=== PATIENT | female | born 1985 | race Two or more races ===

== ENCOUNTER 2020-06-05 09:24 | Outpatient (REF) | payer OTHER, SELFPAY ==
[2020-06-05 10:46] LABS: MANUAL DIFF FLAG NO
[2020-06-05 11:02] LABS: Anion Gap 14 (12-20); Blood Urea Nitrogen 14 mg/dL (9-16); Calcium 8.9 mg/dL (8.4-10.2); Carbon Dioxide 29 mmol/L (22-29); Chloride 105 mmol/L (96-108); Estimated Glomerular Filt Rate > 60; Glucose Random 71 mg/dL (60-115); Sodium 144 mmol/L (135-145)
[2020-06-05 11:04] LABS: Basophils Percent Auto 0.4 % (0-2); Eosinophils Absolute Auto 0.5 X10*3/uL (0.0-0.4); Eosinophils Percent Auto 5.8 % (0-4); Hematocrit 41.1 % (37-47); Hemoglobin 12.7 g/dl (12.0-16.0); Imm Gran Abs Auto 0.02 X10*3/uL (0.00-0.03); Imm Gran Pct Auto 0.2 % (0.0-0.4); Lymphocytes Percent Auto 22.3 % (20-40); Mean Corpuscular HGB Conc 30.9 g/dl (31.0-35.0); Mean Corpuscular Hemoglobin 26.1 pg (27.0-33.0); Mean Corpuscular Volume 84.4 fL (80-98); Mean Platelet Volume 11.8 fL (9.4-12.3); Monocytes Absolute Auto 0.4 X10*3/uL (0.1-1.2); Monocytes Percent Auto 4.6 % (2-11); Neutrophils Absolute Auto 6.1 X10*3/uL (2.0-8.3); Neutrophils Percent Auto 66.7 % (45-73); Platelet Count 285 X10*3/uL (160-400); Red Blood Count 4.87 X10*6/uL (4.20-5.50); Red Cell Distribution Width 14.6 % (11.0-16.0); White Blood Count 9.2 X10*3/uL (4.8-10.8)
== END 2020-06-05 09:25 | disposition home or self-care (01) ==
LOC: HO.LAB 09:24
PROVIDERS: PCP Internal Medicine; Visit Provider Internal Medicine
DX: Z00.00 Encounter for general adult medical examination without abnormal findings (principal); R51.9 Headache, unspecified
CPT/HCPCS: 36415; 80048; 85025

== ENCOUNTER 2020-10-01 10:35 | Outpatient (REF) | payer OTHER, SELFPAY ==
[2020-10-01 11:17] LABS: MANUAL DIFF FLAG NO
[2020-10-01 11:49] LABS: Basophils Percent Auto 0.3 % (0-2); Eosinophils Absolute Auto 0.3 X10*3/uL (0.0-0.4); Eosinophils Percent Auto 4.1 % (0-4); Hematocrit 40.6 % (37-47); Hemoglobin 12.8 g/dl (12.0-16.0); Imm Gran Abs Auto 0.02 X10*3/uL (0.00-0.03); Imm Gran Pct Auto 0.3 % (0.0-0.4); Lymphocytes Absolute Auto 1.9 X10*3/uL (1.2-4.9); Lymphocytes Percent Auto 23.5 % (20-40); Mean Corpuscular HGB Conc 31.5 g/dl (31.0-35.0); Mean Corpuscular Hemoglobin 26.1 pg (27.0-33.0); Mean Corpuscular Volume 82.9 fL (80-98); Mean Platelet Volume 11.7 fL (9.4-12.3); Monocytes Absolute Auto 0.4 X10*3/uL (0.1-1.2); Monocytes Percent Auto 5.2 % (2-11); Neutrophils Absolute Auto 5.3 X10*3/uL (2.0-8.3); Neutrophils Percent Auto 66.6 % (45-73); Platelet Count 219 X10*3/uL (160-400); Red Cell Distribution Width 14.3 % (11.0-16.0); White Blood Count 7.9 X10*3/uL (4.8-10.8)
[2020-10-01 11:55] LABS: Alanine Aminotransferase 17 U/L (0-31); Albumin Level 4.1 g/dL (3.5-5.0); Alkaline Phosphatase 85 U/L (39-117); Anion Gap 12 (12-20); Aspartate Amino Transferase 20 U/L (5-31); Bilirubin Total 0.5 mg/dL (0.0-1.0); Blood Urea Nitrogen 10 mg/dL (9-16); Calcium 9.2 mg/dL (8.4-10.2); Carbon Dioxide 27 mmol/L (22-29); Chloride 108 mmol/L (96-108); Cholesterol 139 mg/dL; Estimated Glomerular Filt Rate > 60; Glucose Fasting 93 mg/dL (60-99); HDL Cholesterol 32 mg/dL; LDL Cholesterol Calculated 92 mg/dl; Potassium 4.1 mmol/L (3.3-5.1); Sodium 143 mmol/L (135-145); Total Protein 7.3 g/dL (6.5-8.0); Triglycerides 76 mg/dL
[2020-10-06 12:52] LABS: Vitamin D 25-OH, D2 <4 ng/mL; Vitamin D 25-OH, D3 22 ng/mL; Vitamin D 25-OH, Total 22 ng/mL (30-100)
== END 2020-10-01 10:36 | disposition home or self-care (01) ==
LOC: HO.LAB 10:35
PROVIDERS: PCP Internal Medicine; Visit Provider Internal Medicine
DX: E66.9 Obesity, unspecified (principal); E55.9 Vitamin D deficiency, unspecified; E78.5 Hyperlipidemia, unspecified; D64.9 Anemia, unspecified
CPT/HCPCS: 36415; 80053; 80061; 82306; 85025

== ENCOUNTER 2020-10-14 15:46 | Emergency (ER) | payer OTHER, SELFPAY ==
--- NOTE | ~2020-10-14 | XR_ITS ---
EXAMINATION: XR ANKLE, RIGHT CLINICAL INFORMATION: Ankle pain COMPARISON: None TECHNIQUE: AP, lateral, and mortise views of the right ankle. FINDINGS: The bones and soft tissues are normal aside from some minimal soft tissue swelling. No fracture. Alignment is anatomic. Joint spaces are maintained. No joint effusion. XR/XR ankle RT min 3V IMPRESSION: No evidence of an acute injury.
[2020-10-14 16:45] VITALS: BP 132/87; PULSE 68; RESP 16; TEMP 36.9; O2SAT 100; BMI 32.9
[2020-10-14] MEDS: Acetaminophen 325 MG TABLET 650 MG PO (16:51)
--- NOTE | 2020-10-14 18:34 | ED_ITS ---
HPI - Extremity Problem General Chief complaint: Extremity Problem <Fabio yWatt MD - Last Filed: 10/14/20 18:42> Stated complaint: fall - work related <Fabio Wyatt MD - Last Filed: 10/14/20 18:42> Time Seen by Provider: 10/14/20 18:32 <Fabio Wyatt MD - Last Filed: 10/14/20 18:42> Source: patient <Fabio Wyatt MD - Last Filed: 10/14/20 18:42> Mode of arrival: ambulatory <Fabio Wyatt MD - Last Filed: 10/14/20 18:42> Limitations: no limitations <Fabio Wyatt MD - Last Filed: 10/14/20 18:42> History of Present Illness HPI Narrative: patient was at work when she twisted her ankle and hurt her foot. Patient having pain with walking. <Fabio Wyatt MD - Last Filed: 10/14/20 18:42> MD Complaint: extremity pain <Fabio Wyatt MD - Last Filed: 10/14/20 18:42> Onset (ago): hour(s) <Fabio Wyatt MD - Last Filed: 10/14/20 18:42> Pain Consistency: constant <Fabio Wyatt MD - Last Filed: 10/14/20 18:42> Exacerbating factors: walking <Fabio Wyatt MD - Last Filed: 10/14/20 18:42> Associated symptoms: denies other symptoms <Fabio Wyatt MD - Last Filed: 10/14/20 18:42> Related Data Home medications: Previous Rx's Medication Instructions Recorded cholecalciferol (vitamin D3) 25 25 mcg PO DAILY 90 Days #90 cap 10/19/20 mcg (1,000 unit) capsule <Fabio Wyatt MD - Last Filed: 10/14/20 18:42> Allergies/Adverse reactions: Allergies Allergy/AdvReac Type Severity Reaction Status Date / Time aspirin Allergy Intermediate rash and Verified 10/19/20 08:03 swelling seafood Allergy Intermediate swelling Verified 10/19/20 08:03 <Fabio Wyatt MD - Last Filed: 10/14/20 18:42> Review of Systems Constitutional: Constitutional: Reports no additional constitutional complaints <Fabio Wyatt MD - Last Filed: 10/14/20 18:42> Eyes: Eyes: Reports no additional eye complaints <Fabio Wyatt MD - Last Filed: 10/14/20 18:42> ENT: Denies dizziness <Fabio Wyatt MD - Last Filed: 10/14/20 18:42> Cardiovascular: Cardiovascular: Reports no additional cardiovascular complaints <Fabio Wyatt MD - Last Filed: 10/14/20 18:42> Respiratory: Respiratory: Reports as per HPI <Fabio Wyatt MD - Last Filed: 10/14/20 18:42> Gastrointestinal: Gastrointestinal: Reports no additional gastrointestinal complaints <Fabio Wyatt MD - Last Filed: 10/14/20 18:42> Genitourinary: Genitourinary: Reports no additional female genitourinary complaints <Fabio Wyatt MD - Last Filed: 10/14/20 18:42> Musculoskeletal: Musculoskeletal: Reports no additional musculoskeletal complaints <Fabio Wyatt MD - Last Filed: 10/14/20 18:42> Integumentary/Breasts: Skin/Breast: Denies rash <Fabio Wyatt MD - Last Filed: 10/14/20 18:42> Neurologic: Reports system reviewed and no additional complaints, except as documented, Denies dizziness and Denies Sensory deficit (Neuro) <Fabio Wyatt MD - Last Filed: 10/14/20 18:42> Psychiatric: Psychiatric: Denies anxiety <Fabio Wyatt MD - Last Filed: 10/14/20 18:42> [facility] Past Medical History Medical History: Medical History (Updated 10/19/20 @ 08:13 by Sharmin Gray MD) Headache Hirsutism Hypovitaminosis D Obese Skin lesion <Fabio Wyatt MD - Last Filed: 10/14/20 18:42> Surgical History: Surgical History History of D&C <Fabio Wyatt MD - Last Filed: 10/14/20 18:42> Family History Family History: Family History Father Stroke Cancer Diabetes Hypertension Mother No problems noted. Maternal Grandmother Cancer Maternal Grandfather Cancer <Fabio Wyatt MD - Last Filed: 10/14/20 18:42> Social History Social History: Social History Housing: Apartment Alcohol intake: never Patient Tobacco Use Status: Never used Tobacco e-Cigarette/Vaping Use: Never Used Second Hand Smoke Exposure: No service: No Current occupational status: employed Current occupational exposures/hazards: No <Fabio Wyatt MD - Last Filed: 10/14/20 18:42> Physical Exam Vital Signs: Vital Signs: Last Vital Signs Temp 98.4 F 10/14/20 16:45 Pulse 68 10/14/20 16:45 Resp 16 10/14/20 16:45 BP 132/87 10/14/20 16:45 Pulse Ox 100 10/14/20 16:45 Body Mass Index 32.9 <Fabio Wyatt MD - Last Filed: 10/14/20 18:42> Vital Signs: Last Vital Signs Temp 98.4 F 10/14/20 16:45 Pulse 68 10/14/20 16:45 Resp 16 10/14/20 16:45 BP 132/87 10/14/20 16:45 Pulse Ox 100 10/14/20 16:45 Body Mass Index 32.9 <MICHA Ireland - Last Filed: 10/24/20 13:46> Const: General: healthy appearing <Fabio Wyatt MD - Last Filed: 10/14/20 18:42> Nutritional Appearance: average body habitus <Fabio Wyatt MD - Last Filed: 10/14/20 18:42> Orientation/consciousness: oriented to person and patient oriented x3 <Fabio Wyatt MD - Last Filed: 10/14/20 18:42> Limitations: no limitations <Fabio Wyatt MD - Last Filed: 10/14/20 18:42> HENMT: Head: Yes normal to inspection <Fabio Wyatt MD - Last Filed: 10/14/20 18:42> Ears: external ears normal <Fabio Wyatt MD - Last Filed: 10/14/20 18:42> General nose exam: Normal external nose present <Fabio Wyatt MD - Last Filed: 10/14/20 18:42> Mouth: Normal oral and palatal mucosa present and oropharynx normal <Fabio Wyatt MD - Last Filed: 10/14/20 18:42> Throat: Yes posterior oropharynx normal <Fabio Wyatt MD - Last Filed: 10/14/20 18:42> Eyes: General: appearance normal, both eyes and all related structures <Fabio Wyatt MD - Last Filed: 10/14/20 18:42> Neck: Other: supple <Fabio Wyatt MD - Last Filed: 10/14/20 18:42> Neck: Yes normal visual inspection <Fabio Wyatt MD - Last Filed: 10/14/20 18:42> Chest: Chest palpation & inspection: normal inspection of the chest <Fabio Wyatt MD - Last Filed: 10/14/20 18:42> Resp: Auscultation: clear to auscultation bilaterally <Fabio Wyatt MD - Last Filed: 10/14/20 18:42> Cardio: Jugular venous distension: no JVD <Fabio Wyatt MD - Last Filed: 10/14/20 18:42> Rate: regular rate <Fabio Wyatt MD - Last Filed: 10/14/20 18:42> Rhythm: regular rhythm <Fabio Wyatt MD - Last Filed: 10/14/20 18:42> Heart sounds: S1 normal heart sound present and S2 normal heart sound present <Fabio Wyatt MD - Last Filed: 10/14/20 18:42> GI: Inspection: Yes normal to inspection <Fabio Wyatt MD - Last Filed: 10/14/20 18:42> Palpation (GI): Soft to palpation, nontender and No hepatosplenomegaly present <Fabio Wyatt MD - Last Filed: 10/14/20 18:42> Auscultation: normal bowel sounds <Fabio Wyatt MD - Last Filed: 10/14/20 18:42> : General: Yes no CVA tenderness <Fabio Wyatt MD - Last Filed: 10/14/20 18:42> Back/Spine/Pelvis: Back: no CVA tenderness <Fabio Wyatt MD - Last Filed: 10/14/20 18:42> Skin: General skin exam: no rashes or lesions noted <Fabio Wyatt MD - Last Filed: 10/14/20 18:42> Neuro: General: oriented to person and patient oriented x3 <Fabio Wyatt MD - Last Filed: 10/14/20 18:42> Cranial nerves: Yes CN's II-XII intact bilaterally <Fabio Wyatt MD - Last Filed: 10/14/20 18:42> Motor exam (neuro): 5/5 motor strength present throughout <Fabio Wyatt MD - Last Filed: 10/14/20 18:42> Sensory Exam: No Sensory deficit (Neuro) <Fabio Wyatt MD - Last Filed: 10/14/20 18:42> Extrem: Other: slight tenderness to lateral maleolous and base of the 5th <Fabio Wyatt MD - Last Filed: 10/14/20 18:42> Psych: Appearance: grossly normal <Fabio Wyatt MD - Last Filed: 10/14/20 18:42> Course Reevaluation(s) Reevaluation #1: patient with sprained ankle, will place in aircast and crutches <Fabio Wyatt MD - Last Filed: 10/14/20 18:42> Time: 18:40 <Fabio Wyatt MD - Last Filed: 10/14/20 18:42> MDM - Extremity (Nontraumatic) Imaging Data right ankle: Radiologist's impression: FINDINGS: The bones and soft tissues are normal aside from some minimal soft tissue swelling. No fracture. Alignment is anatomic. Joint spaces are maintained. No joint effusion.? XR/XR ankle RT min 3V IMPRESSION: No evidence of an acute injury. <Fabio Wyatt MD - Last Filed: 10/14/20 18:42> Discharge Plan Discharge Clinical Impression: Ankle sprain <Fabio Wyatt MD - Last Filed: 10/14/20 18:42> Patient Disposition: Home, Self-Care <Fabio Wyatt MD - Last Filed: 10/14/20 18:42> Instructions: Ankle Sprain (ED) <Fabio Wyatt MD - Last Filed: 10/14/20 18:42> Additional Instructions: ice 20 minutes off and on <Fabio Wyatt MD - Last Filed: 10/14/20 18:42> Prescriptions: No Action cholecalciferol (vitamin D3) 25 mcg (1,000 unit) capsule 25 mcg PO DAILY 90 Days Qty: 90 RF: 1 <Fabio Wyatt MD - Last Filed: 10/14/20 18:42> Referrals: Sharmin Quintero MD [Primary Care Provider] - 1 week <Fabio Wyatt MD - Last Filed: 10/14/20 18:42> Stand Alone Forms: Work/School Release <Fabio Wyatt MD - Last Filed: 10/14/20 18:42> Interventions: ED Discharge Assessment Last Done: 10/14/20 18:45 <Fabio Wyatt MD - Last Filed: 10/14/20 18:42> Discharge Date/Time: 10/14/20 19:04 <Fabio Wyatt MD - Last Filed: 10/14/20 18:42>
== END 2020-10-14 19:04 | disposition home or self-care (01) ==
PROVIDERS: Emergency Provider Emergency Medicine; PCP Internal Medicine
DX: M25.571 Pain in right ankle and joints of right foot (principal)
CPT/HCPCS: 73610; 99283; 99284

== ENCOUNTER 2022-09-15 10:55 | Outpatient (AMB) | payer OTHER, SELFPAY ==
[2022-09-15 10:57] VITALS: BP 114/78; BMI 33.5
--- NOTE | 2022-09-15 10:57 | A.OFFPC_ITS ---
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 Accompanied by: Self / Same As Patient Allergies aspirin Allergy (Intermediate, Verified 09/15/22 11:07) rash and swelling seafood Allergy (Intermediate, Verified 09/15/22 11:07) swelling Medication List - Last Reconciled 09/15/22 by Sharmin Gray MD acetaminophen 500 mg PO Q6H PRN lisinopril 10 mg PO DAILY 30 days Tobacco use date assessed: 09/15/22 Dental Screening Dental Screen Date: 09/15/22 Did you have a dental visit in the last 12 months?: Yes Did you have a dental problem in the last 6 months where you did not have access to dental care?: No Was dental information given to patient?: Patient has dentist HPI HPI Comments History of Present Illness Details This is a 37-year-old female with use disorder that comes today for follow-up on uncontrolled hypertension in which today has a normal blood pressure. Blood pressures associated with headache. Denies any chest pain or shortness of breath. For her hirsutism I will refer her to Endocrinology again. [facility] Medical History (Updated 09/15/22 @ 11:12 by Sharmin Gray MD) Headache Hirsutism Hypovitaminosis D Obese Skin lesion Surgical History History of D&C Family History Father Stroke Cancer Diabetes Hypertension Mother No problems noted. Maternal Grandmother Cancer Maternal Grandfather Cancer Social History Housing: Apartment Alcohol intake: never Patient Tobacco Use Status: Never used Tobacco e-Cigarette/Vaping Use: Never Used Second Hand Smoke Exposure: No service: No Current occupational status: employed Current occupational exposures/hazards: No Cognitive needs: No Hearing needs: No Vision needs: Yes (glasses) Questionnaire PHQ-9 Over the last 2 weeks, how often have you been bothered by any of the following problems? 1. Little interest or pleasure in doing things: not at all 2. Feeling down, depressed, or hopeless: not at all 3. Trouble falling or staying asleep, or sleeping too much: not at all 4. Feeling tired or having little energy: not at all 5. Poor appetite or overeating: not at all 6. Feeling bad about yourself - or that you are a failure or have let yourself or your family down: not at all 7. Trouble concentrating on things, such as reading the newspaper or watching television: not at all 8. Moving or speaking so slowly that other people could have noticed. Or the opposite - being so fidgety or restless that you have been moving around a lot more than usual: not at all 9. Thoughts that you would be better off or of hurting yourself in some way: not at all Total score: 0 Depression Screening Interpretation: Negative 00881 - PHQ-9 Billing: Yes Source: Developed by Drs. Cuate Aguiar, Seda Brink, Marc Garces and colleagues, with an educational chetan from [employer]. Thrive Questionnaire Date Thrive assessed: 09/15/22 I am a: Patient What is your living situation today?: I have a steady place to live Within the past 12 months, did the food you bought not last and you didn't have the money to get more?: Never true Within the past 12 months, did you worry whether your food would run out before you got money to buy more?: Never true Do you have trouble paying for medicines?: No Do you have trouble getting transportation to medical appointments?: No Do you have trouble paying your heating and electricity bill?: No Do you have trouble taking care of your child, family member or friend?: No Do you have trouble with day-to-day activities such as bathing, preparing meals, shopping, managing finances, etc.?: No Are you currently unemployed and looking for a job?: No Are you interested in more education?: No Please select the resources that you would like help with: None Currently or been in a relationship where the following occur: no concerns reported AUDIT C Alcohol Use Questionnaire (AUDIT-C) 1. How often do you have a drink containing alcohol?: Never Total Score: 0 Score Reviewed/Action Taken: No MARINO-7 AMB Questionnaire MARINO-7 Date MARINO - 7 assessed: 09/15/22 Feeling nervous, anxious, or on edge: 0 = Not at all Not being able to stop or control worryin = Not at all Worrying too much about different things: 0 = Not at all Trouble relaxin = Not at all Being so restless that it is hard to sit still: 0 = Not at all Becoming easily annoyed or irritable: 0 = Not at all Feeling afraid as if something awful might happen: 0 = Not at all Total MARINO-7 score (0-4 normal; 5-9 mild; 10-14 moderate; 15-21 severe): 0 Source: Developed by Drs. Cuate Aguiar, Seda Brink, Marc Garces and colleagues, with an educational chetan from [employer]. MARINO-7 Assessment Billing MARINO-7 Assessment Tool: MARINO-7 Assessment 90828 Review of Systems Const All systems reviewed & are unremarkable except as noted in HPI and below Eyes Reports no additional complaints, Denies change in vision and Denies other visual disturbances Card Denies chest pain at rest, Denies chest pain with activity, Denies edema, Denies irregular heart rhythm, Denies claudication, Denies dyspnea, Denies dyspnea on exertion, Denies orthopnea, Denies paroxysmal nocturnal dyspnea and Denies slow heart rate Resp Denies cough, Denies dyspnea and Denies dyspnea on exertion GI Denies abdominal pain, Denies change in bowel habits, Denies excessive flatus, Denies nausea and Denies vomiting Denies urinary incontinence, Denies urinary hesitancy and Denies urinary urgency Musc Denies abnormal gait, Denies atrophy, Denies deformity and Denies limited range of motion Skin/Breast Denies bleeding lesions, Denies changing lesions and Denies rash Neuro Denies abnormal gait and Denies lack of coordination Physical exam (Primary Care) Vital Signs: Last Vital Signs BP 114/78 09/15/22 10:57 BMI result Body Mass Index 33.5 Tobacco/Smoking Status: Tobacco use Status Tobacco use date assessed 09/15/22 09/15/22 11:05 Patient Tobacco Use Status Never used Tobacco 09/15/22 11:05 e-Cigarette/Vaping Use Never Used 09/15/22 11:05 PHQ-9: PHQ-9 Score PHQ-9: Total score 0 09/15/22 11:05 Depression Screening Interpretation: Negative Thrive Assessment: Date of Thrive Assessment Date Thrive assessed 09/15/22 09/15/22 11:05 Currently or been in a relationship where the following occur: no concerns reported Eyes General: appearance normal, both eyes and all related structures Eyelids: Yes eyelids normal Conjunctivae: conjunctivae normal Neck Neck: Yes normal visual inspection and Yes supple Resp Effort & Inspection: normal respiratory effort Auscultation: clear to auscultation bilaterally Cardio Jugular venous distension: no JVD Rate: regular rate Rhythm: regular rhythm Heart sounds: S1 normal heart sound present and S2 normal heart sound present Extrem General: Yes full ROM Assessment and Plan Assessment & Plan (1) Uncontrolled hypertension: Code(s): I10 - Essential (primary) hypertension Plan: Start lisinopril. Blood pressure goal is equal or less than 130/80. (2) Hirsutism: Code(s): L68.0 - Hirsutism Plan: Referred to endocrinology. Orders: Orders 17 Hydroxyprogesterone Today L68.0 - Hirsutism Comprehensive [place]. Panel Fast Today I10 - Essential (primary) hypertension Lipid Panel Today I10 - Essential (primary) hypertension Vitamin D 25-OH Total Today E55.9 - Vitamin D deficiency, unspecified Complete Blood Count Auto Diff Today L68.0 - Hirsutism US renal doppler Today I10 - Essential (primary) hypertension Catecholamines, Frac., Plasma Today I10 - Essential (primary) hypertension Metanephrines, Plasma Today I10 - Essential (primary) hypertension Aldosterone Today I10 - Essential (primary) hypertension Renin Today I10 - Essential (primary) hypertension Referrals Endocrinology Referral L68.0 - Hirsutism Medications: Changed From lisinopril 10 mg PO DAILY 30 days 30 tabs 0RF I10 - Essential (primary) hypertension To lisinopril 10 mg PO DAILY 90 days 90 tabs 1RF I10 - Essential (primary) hypertension Coding Level of Care Code Est Pt Level 3 (91003) Diagnoses Uncontrolled hypertension I10 Hirsutism L68.0 Additional Codes MARINO-7 Assessment Billing - MARINO-7 Assessment Tool: MARINO-7 Assessment 40123 ([id number]) Time Spent (min) 18
== END 2022-09-15 11:16 | disposition home or self-care (01) ==
PROVIDERS: PCP Internal Medicine; Visit Provider Internal Medicine
DX: I10 Essential (primary) hypertension (principal); L68.0 Hirsutism
CPT/HCPCS: 99213

== ENCOUNTER 2022-09-23 09:17 | Outpatient (REF) | payer OTHER, SELFPAY ==
[2022-09-23 09:37] LABS: MANUAL DIFF FLAG NO
[2022-09-23 10:40] LABS: Basophils Percent Auto 0.2 % (0-2); Eosinophils Absolute Auto 0.4 X10*3/uL (0.0-0.4); Eosinophils Percent Auto 4.1 % (0-4); Hematocrit 38.9 % (37.0-47.0); Imm Gran Abs Auto 0.03 X10*3/uL (0.00-0.03); Imm Gran Pct Auto 0.3 % (0.0-0.4); Lymphocytes Absolute Auto 1.9 X10*3/uL (1.2-4.9); Lymphocytes Percent Auto 18.9 % (20-40); Mean Corpuscular HGB Conc 30.8 g/dl (31.0-35.0); Mean Corpuscular Hemoglobin 25.6 pg (27.0-33.0); Mean Corpuscular Volume 83.1 fL (80.0-98.0); Monocytes Absolute Auto 0.5 X10*3/uL (0.1-1.2); Monocytes Percent Auto 4.5 % (2-11); Neutrophils Absolute Auto 7.2 x10*3/uL (2.0-8.3); Platelet Count 238 X10*3/uL (160-400); Red Blood Count 4.68 X10*6/uL (4.20-5.50); Red Cell Distribution Width 14.6 % (11.0-16.0)
[2022-09-23 11:19] LABS: Alanine Aminotransferase 22 U/L (0-31); Albumin Level 4.1 g/dL (3.5-5.0); Alkaline Phosphatase 88 U/L (39-117); Anion Gap 9 (12-20); Aspartate Amino Transferase 23 U/L (5-31); Bilirubin Total 0.5 mg/dL (0.0-1.0); Blood Urea Nitrogen 12 mg/dL (9-16); Calcium 9.1 mg/dL (8.4-10.2); Carbon Dioxide 28 mmol/L (22-29); Chloride 107 mmol/L (96-108); Cholesterol 178 mg/dL; Estimated Glomerular Filt Rate > 60; Glucose Fasting 77 mg/dL (60-99); HDL Cholesterol 38 mg/dL; LDL Cholesterol Calculated 124 mg/dl; Potassium 3.4 mmol/L (3.3-5.1); Sodium 141 mmol/L (135-145); Total Protein 7.4 g/dL (6.5-8.0); Triglycerides 84 mg/dL
[2022-09-23 11:25] LABS: Vitamin D 25-OH Total 29.9 ng/mL (>30)
[2022-10-03 07:59] LABS: Metanephrine, Free 57
[2022-10-03 08:00] LABS: Normetanephrines, Free 148
[2022-10-03 08:01] LABS: Total Metanephrine, Free 205
[2022-10-09 21:28] LABS: Catecholamine Frac, Total 207 pg/mL
== END 2022-09-23 09:18 | disposition home or self-care (01) ==
LOC: HO.LAB 09:17
PROVIDERS: PCP Internal Medicine; Visit Provider Internal Medicine
DX: I10 Essential (primary) hypertension (principal); E55.9 Vitamin D deficiency, unspecified; L68.0 Hirsutism
CPT/HCPCS: 36415; 80053; 80061; 82088; 82306; 82384; 83498; 83835; 84244; 85025

== ENCOUNTER 2022-09-26 10:31 | Outpatient (AMB) | payer OTHER, SELFPAY ==
[2022-09-26 10:52] VITALS: BP 122/90; PULSE 80; O2SAT 98; BMI 33.5
--- NOTE | 2022-09-26 10:52 | MHC.PC.OV ---
Vital Signs 09/26/22 10:52 Height 5 ft 3 in Weight 189 lb BMI 33.5 BP 122/90 H Blood Pressure Location Lt brachial Position Sitting Pulse 80 Pulse Source Pulse Oximeter Temp Source Skin Pulse Oximetry (%) 98 Oxygen Delivery Method Room Air Intake Visit Reasons: Physical Exam Intake Note: Patient is here today for a physical. 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 Allergies aspirin Allergy (Intermediate, Verified 09/26/22 10:53) rash and swelling seafood Allergy (Intermediate, Verified 09/26/22 10:53) swelling Tobacco use date assessed: 09/26/22 Dental Screening Dental Screen Date: 09/26/22 Did you have a dental visit in the last 12 months?: Yes Did you have a dental problem in the last 6 months where you did not have access to dental care?: No Was dental information given to patient?: Patient has dentist HPI HPI Comments History of Present Illness Details 29-year-old female past medical history significant for uncontrolled hypertension, cervalgia, hirtutism. Patient of last seen this month. Patient presents today for physical exam. Patient requesting refill on Vit D, last Vit D level 29.9, 1,000 units sent to patients pharmacy. Patient denies acute concerns. Eye exam: 2 months ago Pap smear: January 2022, normal. Patient follows at [facility] [place]. [facility] Medical History Headache Hirsutism Hypovitaminosis D Obese Skin lesion Surgical History History of D&C Family History Father Stroke Cancer Diabetes Hypertension Mother No problems noted. Maternal Grandmother Cancer Maternal Grandfather Cancer Social History Housing: Apartment Alcohol intake: never Patient Tobacco Use Status: Never used Tobacco e-Cigarette/Vaping Use: Never Used Second Hand Smoke Exposure: No service: No Current occupational status: employed Current occupational exposures/hazards: No Cognitive needs: No Hearing needs: No Vision needs: Yes (glasses) Questionnaire PHQ-9 Over the last 2 weeks, how often have you been bothered by any of the following problems? 1. Little interest or pleasure in doing things: not at all 2. Feeling down, depressed, or hopeless: not at all 3. Trouble falling or staying asleep, or sleeping too much: not at all 4. Feeling tired or having little energy: not at all 5. Poor appetite or overeating: not at all 6. Feeling bad about yourself - or that you are a failure or have let yourself or your family down: not at all 7. Trouble concentrating on things, such as reading the newspaper or watching television: not at all 8. Moving or speaking so slowly that other people could have noticed. Or the opposite - being so fidgety or restless that you have been moving around a lot more than usual: not at all 9. Thoughts that you would be better off or of hurting yourself in some way: not at all Total score: 0 Depression Screening Interpretation: Negative 48036 - PHQ-9 Billing: Yes Source: Developed by Drs. Cuate Aguiar, Seda Brink, Marc Garces and colleagues, with an educational chetan from [employer]. Thrive Questionnaire Date Thrive assessed: 09/15/22 AUDIT C Alcohol Use Questionnaire (AUDIT-C) 1. How often do you have a drink containing alcohol?: Never Total Score: 0 Score Reviewed/Action Taken: No MARINO-7 AMB Questionnaire MARINO-7 Date MARINO - 7 assessed: 09/15/22 Feeling nervous, anxious, or on edge: 0 = Not at all Not being able to stop or control worryin = Not at all Worrying too much about different things: 0 = Not at all Trouble relaxin = Not at all Being so restless that it is hard to sit still: 0 = Not at all Becoming easily annoyed or irritable: 0 = Not at all Feeling afraid as if something awful might happen: 0 = Not at all Total MARINO-7 score (0-4 normal; 5-9 mild; 10-14 moderate; 15-21 severe): 0 Source: Developed by Drs. Cuate Aguiar, Marc Marroquin and colleagues, with an educational chetan from [employer]. MARINO-7 Assessment Billing MARINO-7 Assessment Tool: MARINO-7 Assessment 50305 Review of Systems Const Denies chills, Denies fatigue, Denies fever(s) and Denies poor appetite Eyes Denies no additional complaints ENT Reports Normal hearing present Card Denies chest pain, Denies syncope, Denies rapid heart rate and Denies dyspnea Resp Denies cough and Denies dyspnea GI Denies change in stool character, Denies constipation, Denies diarrhea, Denies nausea and Denies vomiting Denies urinary frequency, Denies dysuria and Denies urinary urgency Neuro Reports Normal hearing present, Denies confusion and Denies syncope Psych Denies confusion Endo Denies fatigue Physical exam (Primary Care) Vital Signs: Last Vital Signs Pulse 80 09/26/22 10:52 BP 122/90 H 09/26/22 10:52 Pulse Ox 98 09/26/22 10:52 Oxygen Delivery Method Room Air 09/26/22 10:52 BMI result Body Mass Index 33.5 Tobacco/Smoking Status: Tobacco use Status Tobacco use date assessed 09/26/22 09/26/22 10:53 Patient Tobacco Use Status Never used Tobacco 09/26/22 10:53 e-Cigarette/Vaping Use Never Used 09/26/22 10:53 PHQ-9: PHQ-9 Score PHQ-9: Total score 0 09/26/22 11:11 Depression Screening Interpretation: Negative Thrive Assessment: Date of Thrive Assessment Date Thrive assessed 09/15/22 09/26/22 10:53 Const General: No confusion Orientation/consciousness: No confusion HENMT Head: Yes normocephalic and Yes atraumatic Ears: external ears normal and TM's normal bilaterally General nose exam: Normal external nose present and Normal nasal mucous membranes and turbinates present Face and sinus: Yes normal facial exam and Yes sinuses nontender Mouth: moist mucous membranes Throat: Yes tonsils normal Eyes Conjunctivae: conjunctivae normal Sclerae: sclerae normal Pupils: Equal, round and reactive pupils present and Pupils normal by confrontation EOM: EOMs intact bilaterally Direct Ophthalmoscopy: normal light reflex Neck Neck: Yes no lymphadenopathy and Yes supple Thyroid: Thyroid normal Chest Chest palpation & inspection: normal inspection of the chest Resp Effort & Inspection: normal respiratory effort Auscultation: clear to auscultation bilaterally, no crackles, no rhonchi and no wheezes Cardio Rate: regular rate Rhythm: regular rhythm Peripheral pulses: radial pulses present and dorsalis pedis present GI Inspection: Yes normal to inspection Palpation (GI): Soft to palpation, nontender and No hepatosplenomegaly present Auscultation: normoactive bowel sounds Skin General skin exam: no rashes or lesions noted Neuro General: No confusion Cranial nerves: Yes Equal, round and reactive pupils present and Yes Normal hearing present Cognition (Neuro): normal cognition Gait exam (Neuro): Normal gait present Motor exam (neuro): 5/5 motor strength present throughout Deep tendon reflexes (DTR's): Right brachioradialis reflex intensity grade: 2+, Left brachioradialis reflex intensity grade: 2+, Right patellar reflex intensity grade: 2+ and Left patellar reflex intensity grade: 2+ Extrem General: No edema Assessment and Plan Assessment & Plan (1) Physical exam, annual: Code(s): Z00.00 - Encounter for general adult medical examination without abnormal findings Plan: Follow up in 1 year for physical exam (2) Uncontrolled hypertension: Code(s): I10 - Essential (primary) hypertension Plan: Continue on lisinopril 10 mg daily. B/p 120/90 in office today, patient states did take her b/p medication yet today. Patient advised to take her medication. Follow low salt diet and excercise. Patient to have Renal ultrasound completed in the beginning of October. (3) Hirsutism: Code(s): L68.0 - Hirsutism Plan: Previously referred to endocrinolgy for this. Plan Follow up in [address] Monsivais Medications: New cholecalciferol (vitamin D3) 25 mcg PO DAILY 30 caps 3RF Coding Level of Care Code Est Pt Prev Care 18-39y(29437) Diagnoses Physical exam, annual Z00.00 Uncontrolled hypertension I10 Hirsutism L68.0 Additional Codes MARINO-7 Assessment Billing - MARINO-7 Assessment Tool: MARINO-7 Assessment [id number] ([id number])
== END 2022-09-26 11:23 | disposition home or self-care (01) ==
PROVIDERS: PCP Internal Medicine; Visit Provider Nurse Practitioner Family
DX: Z00.00 Encounter for general adult medical examination without abnormal findings (principal); I10 Essential (primary) hypertension; L68.0 Hirsutism
CPT/HCPCS: 99395

== ENCOUNTER 2022-10-13 09:06 | Outpatient (REF) | payer OTHER, SELFPAY ==
--- NOTE | ~2022-10-13 | US_ITS ---
EXAMINATION: US RETROPERITONEAL LIMITED (RENAL ONLY) CLINICAL INFORMATION: Hypertension. COMPARISON: None available. TECHNIQUE: Doppler color and grayscale imaging of the kidneys. Doppler color and grayscale evaluation of the renal arteries including waveform spectral analysis FINDINGS: RIGHT KIDNEY: 10 x 5 x 4 cm (SAG x AP x TRV). The kidney is normal in size, contour, and echogenicity. Renal cortical thickness is normal. No calculi. Small 4 mm cyst in the upper pole. No imaging follow-up recommended. No hydronephrosis. LEFT KIDNEY: 10.6 x 5 x 4 cm (SAG x AP x TRV). The kidney is normal in size, contour, and echogenicity. Renal cortical thickness is normal. No calculi or focal parenchymal lesions. No hydronephrosis. Aortic peak systolic velocity is elevated measuring 145 cm/s and cannot be used to calculate renal artery to aorta ratio. The right renal artery is patent. Renal artery peak systolic velocity is normal measuring 97 cm/s proximally, 130 cm/s the midportion and 155 cm/s distally. Resistive indices of the segmental renal arteries in the right kidney are normal measuring 0.6-0.7. Right renal vein is patent. The left renal artery is patent. Left renal artery peak systolic velocity is normal measuring 97, 97 and 78 cm/s proximally, in the midportion and distally. Resistive indices of the segmental renal arteries in the left kidney are normal measuring 0.5-0.6. Left renal vein is patent. US/US renal BI IMPRESSION: Normal renal ultrasound. Normal renal Doppler exam..
--- NOTE | ~2022-10-13 | US_ITS ---
EXAMINATION: US RETROPERITONEAL LIMITED (RENAL ONLY) CLINICAL INFORMATION: Hypertension. COMPARISON: None available. TECHNIQUE: Doppler color and grayscale imaging of the kidneys. Doppler color and grayscale evaluation of the renal arteries including waveform spectral analysis FINDINGS: RIGHT KIDNEY: 10 x 5 x 4 cm (SAG x AP x TRV). The kidney is normal in size, contour, and echogenicity. Renal cortical thickness is normal. No calculi. Small 4 mm cyst in the upper pole. No imaging follow-up recommended. No hydronephrosis. LEFT KIDNEY: 10.6 x 5 x 4 cm (SAG x AP x TRV). The kidney is normal in size, contour, and echogenicity. Renal cortical thickness is normal. No calculi or focal parenchymal lesions. No hydronephrosis. Aortic peak systolic velocity is elevated measuring 145 cm/s and cannot be used to calculate renal artery to aorta ratio. The right renal artery is patent. Renal artery peak systolic velocity is normal measuring 97 cm/s proximally, 130 cm/s the midportion and 155 cm/s distally. Resistive indices of the segmental renal arteries in the right kidney are normal measuring 0.6-0.7. Right renal vein is patent. The left renal artery is patent. Left renal artery peak systolic velocity is normal measuring 97, 97 and 78 cm/s proximally, in the midportion and distally. Resistive indices of the segmental renal arteries in the left kidney are normal measuring 0.5-0.6. Left renal vein is patent. US/US renal doppler IMPRESSION: Normal renal ultrasound. Normal renal Doppler exam..
== END 2022-10-13 09:07 | disposition home or self-care (01) ==
LOC: HO.US 09:06
PROVIDERS: PCP Internal Medicine; Visit Provider Internal Medicine
DX: I10 Essential (primary) hypertension (principal)
CPT/HCPCS: 76775; 93975

== ENCOUNTER 2022-11-30 09:07 | Outpatient (REF) | payer OTHER, SELFPAY ==
--- NOTE | ~2022-11-30 | CT_ITS ---
EXAMINATION: CT ABDOMEN WITHOUT AND WITH CONTRAST CLINICAL INFORMATION: Elevated blood pressure. Rule out pheochromocytoma. COMPARISON: None available. TECHNIQUE: Contiguous axial thin section helical images of the abdomen were performed before and after the administration of 85 mL of Omnipaque 350 intravenous contrast. The data set was reformatted in the coronal and sagittal planes and reviewed on an independent workstation. This CT examination was performed using dose optimization techniques as appropriate, variously including the following: *Automated exposure control *Adjustment of mA and/or kV according to patient size (this includes techniques or standardized protocols for targeted exams where dose is matched to indication/reason for exam; i.e. extremities or head) *Use of iterative reconstruction technique DLP: 415 mGy-cm FINDINGS: LUNG BASES: No suspicious lung nodules. LIVER, GALLBLADDER, AND BILIARY TREE: The liver appears normal. No focal liver mass. The gallbladder is unremarkable. No intrahepatic or extra hepatic biliary ductal dilatation. PANCREAS: No discrete pancreatic mass. No pancreatic ductal dilatation or surrounding inflammatory change. SPLEEN: Normal. ADRENAL GLANDS AND KIDNEYS: No adrenal mass. Tiny cortical hypodensities in the kidneys are too small to characterize but are most likely cysts. No follow-up imaging is recommended. Punctate nonobstructing calculus in the upper pole of the right kidney. 3 mm nonobstructing calculus in the mid left kidney. No hydroureteronephrosis. Nephrograms are symmetric. No perinephric stranding. Single right renal artery and 2 left renal arteries appear patent with no evidence of renal atherosclerosis. BOWEL LOOPS: The visualized segments of small and large bowel appear normal. LYMPH NODES: No lymphadenopathy. VASCULAR: Normal caliber abdominal aorta. BONES: No suspicious osseous lesions. CT/CT abdomen wo/w IV con IMPRESSION: No evidence of pheochromocytoma. Fleischner guidelines were followed.
[2022-11-30] MEDS: iohexoL 350 MG/ML 100 ML INFUS..BTL IV (10:33)
== END 2022-11-30 09:08 | disposition home or self-care (01) ==
LOC: HO.CT 09:07
PROVIDERS: PCP Internal Medicine; Visit Provider Internal Medicine
DX: R03.0 Elevated blood-pressure reading, without diagnosis of hypertension (principal)
CPT/HCPCS: 74170; Q9967

== ENCOUNTER 2023-03-29 09:59 | Outpatient (AMB) | payer OTHER, SELFPAY ==
--- NOTE | 2023-03-29 10:00 | MHC.PC.OV ---
Vital Signs 03/29/23 10:04 Height 5 ft 3 in Weight 191 lb BMI 33.8 BP 112/76 Blood Pressure Location Lt brachial Position Sitting Intake Visit Reasons: HTN Follow up Intake Note: Patient here for a follow up HTN Analytics Senior Manager Required: No Accompanied by: Self / Same As Patient Allergies aspirin Allergy (Intermediate, Verified 03/29/23 10:09) rash and swelling seafood Allergy (Intermediate, Verified 03/29/23 10:09) swelling Medication List - Last Reconciled 03/29/23 by Sharmin Gray MD cholecalciferol (vitamin D3) 25 mcg PO DAILY lisinopril 10 mg PO DAILY 90 days Tobacco use date assessed: 03/29/23 Dental Screening Dental Screen Date: 03/29/23 Did you have a dental visit in the last 12 months?: Yes Did you have a dental problem in the last 6 months where you did not have access to dental care?: No Was dental information given to patient?: Patient has dentist HPI HPI Comments History of Present Illness Details This is a 38-year-old female with essential hypertension and low vitamin-D that complains of eyelid lesion in lower eyelid that she noticed about 3 months ago. It is nontender and papular. She also has allergic rhinitis and I will start her on cetirizine. Blood pressure stable. She is taking vitamin-D supplements for her low vitamin-D. No chest pain or shortness of breath. [facility] Medical History (Updated 03/29/23 @ 10:20 by Sharmin Gray MD) Uncontrolled hypertension Elevated BP without diagnosis of hypertension Skin lesion Hypovitaminosis D Headache Hirsutism Obese Surgical History History of D&C Family History Father Stroke Cancer Diabetes Hypertension Mother No problems noted. Maternal Grandmother Cancer Maternal Grandfather Cancer Social History Housing: Apartment Alcohol intake: never Patient Tobacco Use Status: Never used Tobacco e-Cigarette/Vaping Use: Never Used Second Hand Smoke Exposure: No service: No Current occupational status: employed Current occupational exposures/hazards: No Cognitive needs: No Hearing needs: No Vision needs: Yes (glasses) Questionnaire PHQ-9 Over the last 2 weeks, how often have you been bothered by any of the following problems? 1. Little interest or pleasure in doing things: not at all 2. Feeling down, depressed, or hopeless: not at all 3. Trouble falling or staying asleep, or sleeping too much: not at all 4. Feeling tired or having little energy: not at all 5. Poor appetite or overeating: not at all 6. Feeling bad about yourself - or that you are a failure or have let yourself or your family down: not at all 7. Trouble concentrating on things, such as reading the newspaper or watching television: not at all 8. Moving or speaking so slowly that other people could have noticed. Or the opposite - being so fidgety or restless that you have been moving around a lot more than usual: not at all 9. Thoughts that you would be better off or of hurting yourself in some way: not at all Total score: 0 Depression Screening Interpretation: Negative Depression Screening Done: Yes 61687 - PHQ-9 Billing: Yes Source: Developed by Drs. Cuate Aguiar, Seda Brink, Marc Garces and colleagues, with an educational chetan from [employer]. Thrive Questionnaire Date Thrive assessed: 03/29/23 I am a: Patient What is your living situation today?: I have a steady place to live Within the past 12 months, did the food you bought not last and you didn't have the money to get more?: Never true Within the past 12 months, did you worry whether your food would run out before you got money to buy more?: Never true Do you have trouble paying for medicines?: No Do you have trouble getting transportation to medical appointments?: No Do you have trouble paying your heating and electricity bill?: No Do you have trouble taking care of your child, family member or friend?: No Do you have trouble with day-to-day activities such as bathing, preparing meals, shopping, managing finances, etc.?: No Are you currently unemployed and looking for a job?: No Are you interested in more education?: No Please select the resources that you would like help with: None Currently or been in a relationship where the following occur: no concerns reported THRIVE Score: 0 AUDIT C Alcohol Use Questionnaire (AUDIT-C) 1. How often do you have a drink containing alcohol?: Never Total Score: 0 MARINO-7 AMB Questionnaire MARINO-7 Date MARINO - 7 assessed: 03/29/23 Feeling nervous, anxious, or on edge: 0 = Not at all Not being able to stop or control worryin = Not at all Worrying too much about different things: 0 = Not at all Trouble relaxin = Not at all Being so restless that it is hard to sit still: 0 = Not at all Becoming easily annoyed or irritable: 0 = Not at all Feeling afraid as if something awful might happen: 0 = Not at all Total MARINO-7 score (0-4 normal; 5-9 mild; 10-14 moderate; 15-21 severe): 0 Source: Developed by Drs. Cuate Aguiar, Seda Brink, Marc Garces and colleagues, with an educational chetan from [employer]. MARINO-7 Assessment Billing MARINO-7 Assessment Tool: MARINO-7 Assessment 76147 Review of Systems Const All systems reviewed & are unremarkable except as noted in HPI and below Eyes Reports no additional complaints, Denies change in vision and Denies other visual disturbances Card Denies chest pain at rest, Denies chest pain with activity, Denies edema, Denies irregular heart rhythm, Denies claudication, Denies dyspnea, Denies dyspnea on exertion, Denies orthopnea, Denies paroxysmal nocturnal dyspnea and Denies slow heart rate Resp Denies cough, Denies dyspnea and Denies dyspnea on exertion GI Denies abdominal pain, Denies change in bowel habits, Denies excessive flatus, Denies nausea and Denies vomiting Denies urinary incontinence, Denies urinary hesitancy and Denies urinary urgency Musc Denies abnormal gait, Denies atrophy, Denies deformity and Denies limited range of motion Skin/Breast Denies bleeding lesions, Denies changing lesions and Denies rash Neuro Denies abnormal gait, Denies behavioral changes and Denies lack of coordination Psych Denies behavioral changes Physical exam (Primary Care) Vital Signs: Last Vital Signs BP 112/76 03/29/23 10:04 BMI result Body Mass Index 33.8 Tobacco/Smoking Status: Tobacco use Status Tobacco use date assessed 03/29/23 03/29/23 10:07 Patient Tobacco Use Status Never used Tobacco 03/29/23 10:03 e-Cigarette/Vaping Use Never Used 03/29/23 10:03 PHQ-9: PHQ-9 Score PHQ-9: Total score 0 03/29/23 10:03 Depression Screening Interpretation: Negative Thrive Assessment: Date of Thrive Assessment Date Thrive assessed 03/29/23 03/29/23 10:03 Currently or been in a relationship where the following occur: no concerns reported Eyes General: appearance normal, both eyes and all related structures Eyelids: Yes eyelids normal Conjunctivae: conjunctivae normal Neck Neck: Yes normal visual inspection and Yes supple Resp Effort & Inspection: normal respiratory effort Auscultation: clear to auscultation bilaterally Cardio Jugular venous distension: no JVD Rate: regular rate Rhythm: regular rhythm Heart sounds: S1 normal heart sound present and S2 normal heart sound present Extrem General: Yes full ROM Office Procedures Flu Questionnaire Does the patient have a severe egg allergy?: No Immunizations flu vacc [id number] 6mos up(PF) 60 mcg(15 mcgx4)/0.5 mL IM syringe Performing Provider: Sharmin Gray MD [facility] Documented (not given) by: COOPER Huerta on 03/29/23 10:08 Reason Not Given: Patient Refused Assessment and Plan Assessment & Plan (1) Essential hypertension: Code(s): I10 - Essential (primary) hypertension Plan: Continue lisinopril. Blood pressure goal is equal or less than 130/80. (2) Hypovitaminosis D: Code(s): E55.9 - Vitamin D deficiency, unspecified Plan: Continue vitamin-D supplements. (3) Eyelid lesion: Code(s): H02.9 - Unspecified disorder of eyelid Plan: Referred to Ophthalmology (4) Allergic rhinitis: Code(s): J30.9 - Allergic rhinitis, unspecified Plan: Start cetirizine as needed. Orders: Orders Influenza [id number] Immunization Today Z23 - Encounter for immunization Lipid Panel Today E66.9 - Obesity, unspecified Comprehensive [place]. Panel Fast Today E66.9 - Obesity, unspecified Vitamin D 25-OH Total Today E55.9 - Vitamin D deficiency, unspecified Referrals Ophthalmology Referral H02.9 - Unspecified disorder of eyelid Medications: New cetirizine (All Day Allergy (cetirizine)) 10 mg PO DAILY 90 days PRN 90 tabs 0RF allergy symptoms Refilled cholecalciferol (vitamin D3) 25 mcg PO DAILY 30 caps 3RF Coding Level of Care Code Est Pt Level 4 (93840) Diagnoses Essential hypertension I10 Hypovitaminosis D E55.9 Eyelid lesion H02.9 Allergic rhinitis J30.9 Additional Codes MARINO-7 Assessment Billing - MARINO-7 Assessment Tool: MARNIO-7 Assessment 97891 ([id number]) Time Spent (min) 20
[2023-03-29 10:04] VITALS: BP 112/76; BMI 33.8
== END 2023-03-29 10:18 | disposition home or self-care (01) ==
PROVIDERS: PCP Internal Medicine; Visit Provider Internal Medicine
DX: I10 Essential (primary) hypertension (principal); E55.9 Vitamin D deficiency, unspecified; H02.9 Unspecified disorder of eyelid; J30.9 Allergic rhinitis, unspecified
CPT/HCPCS: 99214

== ENCOUNTER 2023-10-03 09:26 | Outpatient (AMB) | payer OTHER, SELFPAY ==
[2023-10-03 09:32] VITALS: BP 120/78; BMI 34.0
--- NOTE | 2023-10-03 09:32 | MHC.PC.OV ---
Vital Signs 10/03/23 09:32 Height 5 ft 3 in Weight 192 lb BMI 34.0 BP 120/78 Blood Pressure Location Lt brachial Position Sitting Intake Visit Reasons: Annual Exam Intake Note: Patient here for an annual physical exam Setter Molding And Coremaking Machines Required: No Accompanied by: Self / Same As Patient Allergies aspirin Allergy (Intermediate, Verified 10/03/23 10:05) rash and swelling seafood Allergy (Intermediate, Verified 10/03/23 10:05) swelling Medication List - Last Reconciled 10/03/23 by Sharmin Gray MD cetirizine (All Day Allergy (cetirizine)) 10 mg PO DAILY PRN 90 days cholecalciferol (vitamin D3) 25 mcg PO DAILY lisinopril 10 mg PO DAILY 90 days Tobacco use date assessed: 03/29/23 Dental Screening Dental Screen Date: 03/29/23 HPI HPI Comments History of Present Illness Details This is a 38-year-old female that comes for her physical exam. Labs Pap smear was at [facility] less than a year ago and it was normal as per patient. She is obese with a BMI of 34 and has tried diet and exercise. Will start Wegovy if insurance approved. Side effects were discussed. She also has skin lesions in lower eyelid and went to see Ophthalmology and he told her she needs to be seen by Dermatology. [facility] Medical History (Updated 10/03/23 @ 10:21 by Sharmin Gray MD) Uncontrolled hypertension Elevated BP without diagnosis of hypertension Skin lesion Hypovitaminosis D Headache Hirsutism Obese Surgical History History of D&C Family History Father Stroke Cancer Diabetes Hypertension Mother No problems noted. Maternal Grandmother Cancer Maternal Grandfather Cancer Social History Housing: Apartment Alcohol intake: never Patient Tobacco Use Status: Never used Tobacco e-Cigarette/Vaping Use: Never Used Second Hand Smoke Exposure: No service: No Current occupational status: employed Current occupational exposures/hazards: No Cognitive needs: No Hearing needs: No Vision needs: Yes (glasses) Questionnaire Thrive Questionnaire Date Thrive assessed: 03/29/23 MARINO-7 AMB Questionnaire MARINO-7 Date MARINO - 7 assessed: 03/29/23 Source: Developed by Drs. Cuate Aguiar, Seda Brink, Marc Garces and colleagues, with an educational chetan from [employer]. Review of Systems Const All systems reviewed & are unremarkable except as noted in HPI and below Card Denies chest pain at rest, Denies chest pain with activity, Denies edema, Denies irregular heart rhythm, Denies claudication, Denies dyspnea, Denies dyspnea on exertion, Denies orthopnea, Denies paroxysmal nocturnal dyspnea and Denies slow heart rate Resp Denies cough, Denies dyspnea and Denies dyspnea on exertion GI Denies abdominal pain, Denies change in bowel habits, Denies excessive flatus, Denies nausea and Denies vomiting Denies urinary incontinence, Denies urinary hesitancy and Denies urinary urgency Musc Denies abnormal gait, Denies atrophy, Denies deformity and Denies limited range of motion Skin/Breast Denies bleeding lesions, Denies changing lesions, Reports lesions and Denies rash Neuro Denies abnormal gait, Denies behavioral changes and Denies lack of coordination Psych Denies behavioral changes Physical exam (Primary Care) Vital Signs: Last Vital Signs BP 120/78 10/03/23 09:32 BMI result Body Mass Index 34.0 BMI Assessment/Plan discussion: High BMI High, discussed plan: lifestyle, weight reduction, dietary and physical activity Tobacco/Smoking Status: Tobacco use Status Tobacco use date assessed 03/29/23 10/03/23 09:38 Patient Tobacco Use Status Never used Tobacco 10/03/23 09:38 e-Cigarette/Vaping Use Never Used 10/03/23 09:38 Thrive Assessment: Date of Thrive Assessment Date Thrive assessed 03/29/23 10/03/23 09:38 [facility] Head: Yes normal to inspection, Yes normocephalic and Yes atraumatic Ears: external ears normal Eyes General: appearance normal, both eyes and all related structures Eyelids: Yes eyelids normal Conjunctivae: conjunctivae normal Neck Neck: Yes normal visual inspection and Yes supple Resp Effort & Inspection: normal respiratory effort Auscultation: clear to auscultation bilaterally Cardio Jugular venous distension: no JVD Rate: regular rate Rhythm: regular rhythm Heart sounds: S1 normal heart sound present and S2 normal heart sound present GI Inspection: Yes normal to inspection Palpation (GI): Soft to palpation and nontender Auscultation: normal bowel sounds Skin General skin exam: no rashes or lesions noted Lesions: lesion noted (lower eyelids) Neuro General: no focal motor deficits Extrem General: Yes full ROM Psych Appearance: grossly normal Assessment and Plan Assessment & Plan (1) Physical exam: Code(s): Z00.00 - Encounter for general adult medical examination without abnormal findings Plan: Repeat in a year. (2) Skin lesion: Code(s): L98.9 - Disorder of the skin and subcutaneous tissue, unspecified Plan: Referred to dermatology. (3) Obese: Code(s): E66.9 - Obesity, unspecified Qualifiers: Obesity type: due to excess calories Obesity classification: adult class 1 (BMI 30 - 34.9) Serious obesity comorbidity presence: without serious comorbidity Plan: Start Wegovy. BMI goal is less than 30. Orders: Orders Vitamin D 25-OH Total Today E55.9 - Vitamin D deficiency, unspecified Comprehensive [place]. Panel Fast Today Z00.00 - Encounter for general adult medical examination without abnormal findings Lipid Panel Today E78.5 - Hyperlipidemia, unspecified Thyroid Stimulating Hormone Today E66.9 - Obesity, unspecified Referrals Dermatology Referral L98.9 - Disorder of the skin and subcutaneous tissue, unspecified Medications: New semaglutide (weight loss) (Wegovy) administer weeks 1 through 4 of therapy 0.25 mg (0.5 mL) subcut QWEEK 4 weeks 2 mL 0RF E66.9 - Obesity, unspecified Refilled cholecalciferol (vitamin D3) 25 mcg PO DAILY 30 caps 3RF cetirizine (All Day Allergy (cetirizine)) 10 mg PO DAILY 90 days PRN 90 tabs 0RF allergy symptoms Coding Level of Care Code Est Pt Level 3 (14879) Est Pt Prev Care 18-39y(70415) Diagnoses Physical exam Z00.00 Skin lesion L98.9 Obese E66.9 Obesity type: due to excess calories Obesity classification: adult class 1 (BMI 30 - 34.9) Serious obesity comorbidity presence: without serious comorbidity Time Spent (min) 33
== END 2023-10-03 10:14 | disposition home or self-care (01) ==
PROVIDERS: PCP Internal Medicine; Visit Provider Internal Medicine
DX: Z00.00 Encounter for general adult medical examination without abnormal findings (principal); E66.9 Obesity, unspecified; Z68.34 Body mass index [BMI] 34.0-34.9, adult; L98.9 Disorder of the skin and subcutaneous tissue, unspecified
CPT/HCPCS: 99213; 99395

== ENCOUNTER 2024-04-02 11:13 | Outpatient (REF) | payer BC, SELFPAY ==
--- OUTSIDE RECORDS SUMMARY | 2024-04-02 12:28 | XMS_ITS | Clinical Summary ---
Author Organization [facility] ity Address [address] [place] [address] Care Team Providers Care Real Estate Utilization Officer Name Role Phone Unavailable Primary Care Provider Unavailabl e Social History Tobacco Use Types Packs/Day Years Used Date Smoking Tobacco: Never Assessed Sex and Gender Information Value Date Recorded Sex Assigned at Not on file Gender Identity Not on file Sexual Orientation Not on file Plan of Treatment Health Maintenance Due Date Last Done Comments Breast Cancer Screening 1984 DTaP,Tdap,and Td Vaccines (1 - Tdap) 01/05/2003 Hepatitis B Vaccines (1 of 3 - 19+ 3-dose series) 01/05/2003 Cervical Cancer Screening: P ap Smear 01/05/2005 Depression Screening 02/06/2022 HIV Screening 02/06/2022 Hepatitis C Screening 02/06/2022 Social Influencers of Health Screening 02/06/2022 COVID-19 Vaccine (2023-2 5 season) 2023 Influenza Vaccine (#1) 2023 HIB Vaccines Aged Out No longer eligi ble based on patient's age to complete this topic HPV Vaccines Aged Out No longer eligi ble based on patient's age to complete this topic Hepatitis A Vaccines Aged Out No long er eligible based on patient's age to complete this topic IPV Vaccines Aged Out No longer eligi ble based on patient's age to complete this topic MMR Vaccines Aged Out No longer eligi ble based on patient's age to complete this topic Meningococcal ACWY Vaccine Aged Out N o longer eligible based on patient's age to complete this topic Pneumococcal Vaccine: Pediat rics (0 to 5 Years) and At-Risk Patients (6 to 64 Years) Aged Out No longer eligible b ased on patient's age to complete this topic RSV Immunization Patients Un carie 20 months Aged Out No longer eligible b ased on patient's age to complete this topic Varicella Vaccines Aged Out No longer eligible based on patient's age to complete this topic
[2024-04-02 12:29] LABS: Alanine Aminotransferase 19 U/L (0-31); Albumin Level 3.9 g/dL (3.5-5.0); Alkaline Phosphatase 74 U/L (39-117); Anion Gap 6 (12-20); Aspartate Amino Transferase 27 U/L (5-31); Bilirubin Total 0.3 mg/dL (0.0-1.0); Blood Urea Nitrogen 11 mg/dL (9-16); Calcium 8.4 mg/dL (8.4-10.2); Carbon Dioxide 26 mmol/L (22-29); Chloride 111 mmol/L (96-108); Cholesterol 147 mg/dL (<200); Estimated Glomerular Filt Rate > 60; Glucose Fasting 85 mg/dL (60-99); HDL Cholesterol 34 mg/dL (>40); LDL Cholesterol Calculated 92 mg/dL (<100); Potassium 3.9 mmol/L (3.3-5.1); Sodium 139 mmol/L (135-145); Total Protein 7.3 g/dL (6.5-8.0); Triglycerides 109 mg/dL (<150)
[2024-04-02 12:56] LABS: Thyroid Stimulating Hormone 3.38 uIU/mL (0.32-4.0); Vitamin D 25-OH Total 22.1 ng/mL (>30)
== END 2024-04-02 11:14 | disposition home or self-care (01) ==
LOC: HO.LAB 11:13
PROVIDERS: PCP Internal Medicine; Visit Provider Internal Medicine
DX: Z00.00 Encounter for general adult medical examination without abnormal findings (principal); E66.9 Obesity, unspecified; E55.9 Vitamin D deficiency, unspecified; E78.5 Hyperlipidemia, unspecified
CPT/HCPCS: 36415; 80053; 80061; 82306; 84443

== ENCOUNTER → 2024-04-04 10:13 | Outpatient (BNVA) | payer BC, SELFPAY | PROVIDERS: PCP Internal Medicine; Visit Provider Internal Medicine | DX: I10 Essential (primary) hypertension (principal); E55.9 Vitamin D deficiency, unspecified; E66.9 Obesity, unspecified; Z68.32 Body mass index [BMI] 32.0-32.9, adult; Z28.21 Immunization not carried out because of patient refusal | CPT/HCPCS: 90471; 96127 ==

== ENCOUNTER 2024-04-10 10:35 | Outpatient (AMB) | payer BC, SELFPAY ==
[2024-04-10 10:37] VITALS: BP 124/78; PULSE 81; O2SAT 99; BMI 32.8
--- NOTE | 2024-04-10 10:37 | HO.NEPHOV ---
Vital Signs 04/10/24 10:37 Height 5 ft 3 in Weight 185 lb BMI 32.8 BP 124/78 Blood Pressure Location Lt brachial Position Sitting Pulse 81 Pulse Source Pulse Oximeter Pulse Oximetry (%) 99 Oxygen Delivery Method Room Air Intake Visit Reasons: INP: Essential (primary) hypertension/ Conf Project Builder Required: No Accompanied by: Self / Same As Patient Allergies aspirin Allergy (Intermediate, Verified 04/04/24 10:27) rash and swelling seafood Allergy (Intermediate, Verified 04/04/24 10:27) swelling Medication List - Last Reconciled 04/10/24 by Jose Hinton MD cholecalciferol (vitamin D3) 25 mcg PO DAILY lisinopril 10 mg PO DAILY 90 days HPI Comments Details: Young woman referred for hypertension. She has been monitoring her blood pressure at home has been episodes were blood pressure has been elevated in the range of 160 mm Hg systolic. She is currently on lisinopril. She admits to snoring at night. She has not been evaluated for sleeps apnea. She was history of overweight she has been prescribed Wegovy and she is yet to start. [facility] Medical History Uncontrolled hypertension Elevated BP without diagnosis of hypertension Skin lesion Hypovitaminosis D Headache Hirsutism Obese Surgical History History of D&C Family History Father Stroke Cancer Diabetes Hypertension Mother No problems noted. Maternal Grandmother Cancer Maternal Grandfather Cancer Social History Housing: Apartment Alcohol intake: never Patient Tobacco Use Status: Never used Tobacco e-Cigarette/Vaping Use: Never Used Second Hand Smoke Exposure: No service: No Current occupational status: employed Current occupational exposures/hazards: No Cognitive needs: No Hearing needs: No Vision needs: Yes (glasses) Review of Systems Const Denies fever(s) and Denies weight loss Card Denies chest pain Resp Denies cough and Denies hemoptysis GI Denies abdominal pain, Denies diarrhea and Denies nausea Musc Denies back pain Neuro Denies focal weakness Physical Exam Vital Signs: Last Vital Signs Pulse 81 04/10/24 10:37 BP 124/78 04/10/24 10:37 Pulse Ox 99 04/10/24 10:37 Oxygen Delivery Method Room Air 04/10/24 10:37 BMI result Body Mass Index 32.8 Comfortable Neck supple no JVD. Lungs entry equal no rales. Heart S1-S2 heard no gallop or rub. Abdomen soft nontender. Neuro alert awake oriented. No asterixis. Extremities no edema. Results Reviewed Nephrology Results: Hgb 12.0 g/dl (12.0-16.0) 09/23/22 WBC 10.0 X10*3/uL (4.8-10.8) 09/23/22 Plt Count 238 X10*3/uL (160-400) 09/23/22 Sodium 139 mmol/L (135-145) 04/02/24 Potassium 3.9 mmol/L (3.3-5.1) 04/02/24 Chloride 111 mmol/L (96-108) H 04/02/24 Carbon Dioxide 26 mmol/L (22-29) 04/02/24 BUN 11 mg/dL (9-16) 04/02/24 Creatinine 0.72 mg/dL (0.5-1.4) 04/02/24 Calcium 8.4 mg/dL (8.4-10.2) 04/02/24 Renal US 10/13/22 Assessment & Plan Assessment & Plan (1) Essential hypertension: Code(s): I10 - Essential (primary) hypertension Category: Medical Plan Young woman with a essential hypertension setting of overweight. Today blood pressure is acceptable. She has had episodes of hypertension. I will obtain a 24 hour ambulatory blood pressure monitoring. Referred for sleep evaluation to rule out sleep apnea. Discussed importance of weight loss Encouraged her to stay on low-sodium diet. Increase physical activities. Orders: Orders AMB 24 HR B/P Monitor PLACEMENT Today I10 - Essential (primary) hypertension Referrals Sleep Medicine Referral I10 - Essential (primary) hypertension Coding Level of Care Code New Pt Level 4 (73178) Diagnoses Essential hypertension I10
--- OUTSIDE RECORDS SUMMARY | 2024-04-10 11:37 | XMS_ITS | Clinical Summary ---
Author Organization [facility] ity Address [address] [place] [address] Care Team Providers Care Hand Zipper Trimmer Name Role Phone Unavailable Primary Care Provider [...]
== END 2024-04-10 10:53 | disposition home or self-care (01) ==
PROVIDERS: PCP Internal Medicine; Referring Provider Internal Medicine; Visit Provider Internal Medicine Hypertension Specialist
DX: I10 Essential (primary) hypertension (principal)
CPT/HCPCS: 99204

== ENCOUNTER 2024-04-18 08:56 | Outpatient (AMB) | payer BC, SELFPAY ==
[2024-04-18 09:04] VITALS: BP 122/86; PULSE 94; O2SAT 98; BMI 32.4
--- NOTE | 2024-04-18 09:04 | A.OFFVIS_ITS ---
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 handed female presents to us for a sleep evaluation, referred by her PCP. 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 She wakes up at 11am and has difficulty waking up. She goes to the bathroom once per night. She has been having difficulty with sleep and she has been snoring loudly. She gasps for air and wakes her self up. She denies morning headaches. She denies restless legs, or uncomfortable sensations in her legs which keeps her up at night. She says her memory is okay, and mood is irritable when unable to get a good night sleep. She walks 3-4x a week on the treadmill for 30 min and is trying to lose weight on Wegovy 0.25mg subcut x1 weekly. Her BP is controlled and she notices when stressed it does get elevated. She is trying to control her portion sizes and avoids eating breads daily. She doesn't smoke and doesn't drink alcohol. 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 [facility] Medical History Uncontrolled hypertension Elevated BP without diagnosis of hypertension Skin lesion Hypovitaminosis D Headache Hirsutism Obese Surgical History History of D&C Family History Father Stroke Cancer Diabetes Hypertension Mother No problems noted. Maternal Grandmother Cancer Maternal Grandfather Cancer Social History Housing: Apartment Alcohol intake: never Patient Tobacco Use Status: Never used Tobacco e-Cigarette/Vaping Use: Never Used Second Hand Smoke Exposure: No service: No Current occupational status: employed Current occupational exposures/hazards: No Cognitive needs: No Hearing needs: No Vision needs: Yes (glasses) Review of Systems Const All systems reviewed & are unremarkable except as noted in HPI and below Physical Exam Vital Signs: Last Vital Signs Pulse 94 04/18/24 09:04 BP 122/86 04/18/24 09:04 Pulse Ox 98 04/18/24 09:04 Oxygen Delivery Method Room Air 04/18/24 09:04 BMI result Body Mass Index 32.4 Const General: cooperative, comfortable and no acute distress Nutritional Appearance: other (BmI is 32) Orientation/consciousness: patient oriented x3 HEENT Face and sinus: Yes normal facial exam and Yes face symmetric Throat: Yes other ([place] score of 4) Eyes Pupils: Equal, round and reactive pupils present Neck Neck: Yes full ROM Resp Effort & Inspection: normal respiratory effort and able to speak in complete sentences Neuro General: patient oriented x3 Cranial nerves: Yes CN's II-XII intact bilaterally, Yes Facial sensation intact/muscles of mastication intact, Yes Equal, round and reactive pupils present, Yes Normal accommodation reflex present, Yes Bilaterally intact EOM present, Yes Nystagmus not present, Yes Normal facial strength present, Yes Midline tongue present, Yes Ability to bilaterally rotate head present and Yes Ability to bilaterally elevate shoulders present Motor exam (neuro): 5/5 motor strength present throughout, no tremor noted and Normal motor muscle tone present throughout Deep tendon reflexes (DTR's): Right triceps reflex intensity grade: 2+, Left triceps reflex intensity grade: 2+, Rt Biceps (C5, C6): 2+, Left biceps reflex intensity grade: 2+, Right brachioradialis reflex intensity grade: 2+, Left brachioradialis reflex intensity grade: 2+, Right patellar reflex intensity grade: 2+ and Left patellar reflex intensity grade: 2+ Psych Thought process: Normal thought process present Thought content: Normal thought content present Assessment & Plan Assessment & Plan (1) Excessive daytime sleepiness: Code(s): G47.19 - Other hypersomnia Category: Medical (2) Essential hypertension: Code(s): I10 - Essential (primary) hypertension Category: Medical (3) Hypovitaminosis D: Code(s): E55.9 - Vitamin D deficiency, unspecified Category: Medical (4) Headache: Code(s): R51.9 - Headache, unspecified Category: Medical Qualifiers: Headache type: tension-type Headache chronicity pattern: chronic headache Intractability: not intractable Qualified Code(s): G44.229 - Chronic tension-type headache, not intractable Plan Excessive Daytime Fatigue will evaluate with HST Labs to R/O deficiencies - continue to take the Vitamin D as prescribed by your PCP. Will F/U in 3 months Orders: Orders Homocysteine Today G47.19 - Other hypersomnia Methylmalonic Acid Today G47.9 - Sleep disorder, unspecified, R53.83 - Other fatigue Vitamin B12 and Folate Today G47.19 - Other hypersomnia IRON PROFILE Today G47.9 - Sleep disorder, unspecified, R53.83 - Other fatigue RT home sleep study Today G47.19 - Other hypersomnia Vitamin D 25-OH Total Today G47.19 - Other hypersomnia Patient Instructions: Patient Education : Sleep hygiene Sleep in a dark room, no devices in bed, you may read a book or magazine in bed, no fluids 2 hours prior to bed. May diffuse essential oils to relax, and use a fan for humming white noise or noise machine as necessary. HTN Good BP control is the #1 Modifiable RF for cardiovascular events, take all meds as prescribed and monitor bp. [place] [employer] Recommends the DASH Diet and the Mediterranean Diet to control blood pressure. Coding Level of Care Code New Pt Level 4 (19457) Diagnoses Excessive daytime sleepiness G47.19 Essential hypertension I10 Hypovitaminosis D E55.9 Chronic tension-type headache, not intractable G44.229 Headache type: tension-type Headache chronicity pattern: chronic headache Intractability: not intractable Time Spent (min) 30 Comment Evalution of Sleep Sleep Questionnaire Difficulty falling asleep: Yes Difficulty staying asleep?: Yes Number of arousals: 3x Snoring: Yes Witnessed apneas: Yes Gasping arousals: Yes Nocturia: No GERD: No Vivid dreams: No Acting out dreams: No Abnormal behavior in sleep: No Abnormal movements in sleep: No Morning headaches: No Excessive daytime sleepiness: Yes Daytime naps: No Restless legs: No Hallucinations: No Sleep paralysis: No Drop attacks: No Sleep Study: No CPAP: No
--- OUTSIDE RECORDS SUMMARY | 2024-04-18 09:18 | XMS_ITS | Clinical Summary ---
Author Organization [facility] it Address [address] [place] [address] Care Team Providers Care Oceanography Professor Name Role Phone Unavailable Primary Care Provider Unavailabl e Social History Tobacco Use Types Packs/Day Years Used Date Smoking Tobacco: Never Assessed Comments Unknown Sex and Gender Information Value Date Recorded Sex Assigned at Not on file Legal Sex Female 3:58 AM EST Gender Identity Not on file Sexual Orientation [...] patient's age to complete this topic Meningococcal B Vacine Aged Out No lo nger eligible based on patient's age to complete [...]
== END 2024-04-18 09:42 | disposition home or self-care (01) ==
PROVIDERS: PCP Internal Medicine; Visit Provider Physician Assistant Medical
DX: G47.19 Other hypersomnia (principal); I10 Essential (primary) hypertension; E55.9 Vitamin D deficiency, unspecified; G44.229 Chronic tension-type headache, not intractable
CPT/HCPCS: 99204

== ENCOUNTER → 2024-05-07 09:26 | Outpatient (BNVA) | payer BC, SELFPAY | PROVIDERS: PCP Internal Medicine; Visit Provider Internal Medicine Hypertension Specialist ==

== ENCOUNTER 2024-05-08 09:24 | Outpatient (AMB) | payer BC, SELFPAY ==
[2024-05-08 09:34] VITALS: BP 138/90; PULSE 68; O2SAT 97; BMI 33.1
--- NOTE | 2024-05-08 09:34 | HO.NEPHOV_ITS ---
Vital Signs 05/08/24 09:34 Height 5 ft 3 in Weight 187 lb BMI 33.1 BP 138/90 H Blood Pressure Location Lt brachial Position Sitting Pulse 68 Pulse Source Pulse Oximeter Pulse Oximetry (%) 97 Oxygen Delivery Method Room Air Intake Visit Reasons: Follow up 4 weeks ABMP Results/ Conf Authorization Representative Required: No Accompanied by: Self / Same As Patient Allergies aspirin Allergy (Intermediate, Verified 05/08/24 09:36) rash and swelling seafood Allergy (Intermediate, Verified 05/08/24 09:36) swelling Medication List - Last Reconciled 05/08/24 by Jose Hinton MD cholecalciferol (vitamin D3) 25 mcg PO DAILY lisinopril 10 mg PO DAILY 90 days HPI Comments Details: Young woman referred for hypertension. She has been monitoring her blood pressure at home has been episodes were blood pressure has been elevated in the range of 160 mm Hg systolic. She is currently on lisinopril. She admits to snoring at night. She has not been evaluated for sleeps apnea. She was history of overweight she has been prescribed Wegovy and she is yet to start. 05/08/24 undergoing sleep evaluation Gained 4 lbs [facility] Medical History Uncontrolled hypertension Elevated BP without diagnosis of hypertension Skin lesion Hypovitaminosis D Headache Hirsutism Obese Surgical History History of D&C Family History Father Stroke Cancer Diabetes Hypertension Mother No problems noted. Maternal Grandmother Cancer Maternal Grandfather Cancer Social History Housing: Apartment Alcohol intake: never Patient Tobacco Use Status: Never used Tobacco e-Cigarette/Vaping Use: Never Used Second Hand Smoke Exposure: No service: No Current occupational status: employed Current occupational exposures/hazards: No Cognitive needs: No Hearing needs: No Vision needs: Yes (glasses) Physical Exam Vital Signs: Last Vital Signs Pulse 68 05/08/24 09:34 BP 138/90 H 05/08/24 09:34 Pulse Ox 97 05/08/24 09:34 Oxygen Delivery Method Room Air 05/08/24 09:34 BMI result Body Mass Index 33.1 Comfortable Neck supple no JVD. Lungs entry equal no rales. Heart S1-S2 heard no gallop or rub. Abdomen soft nontender. Neuro alert awake oriented. No asterixis. Extremities no edema. Office Procedures 24 B/P Monitor Interpretation Details: ABPM stage 1 HTN Dipping present No white coat HTN or effect . CPT: 75053 24 Hour Blood Pressure Monitor Reading Procedure code (CPT) selection complete Results Reviewed Nephrology Results: Sodium 139 mmol/L (135-145) 04/02/24 Potassium 3.9 mmol/L (3.3-5.1) 04/02/24 Chloride 111 mmol/L (96-108) H 04/02/24 Carbon Dioxide 26 mmol/L (22-29) 04/02/24 BUN 11 mg/dL (9-16) 04/02/24 Creatinine 0.72 mg/dL (0.5-1.4) 04/02/24 Calcium 8.4 mg/dL (8.4-10.2) 04/02/24 Assessment & Plan Assessment & Plan (1) Essential hypertension: Code(s): I10 - Essential (primary) hypertension Category: Medical Plan Young woman with a essential hypertension setting of overweight. Today blood pressure is acceptable. She has had episodes of hypertension. 24 hour ambulatory blood pressure monitoring showed ABPM stage 1 with dipping INCREASED LISINOPRIL to 20 mg QD Await sleep evaluation Discussed importance of weight loss Encouraged her to stay on low-sodium diet. Increase physical activities. Orders: Orders AMB 24 HR B/P Monitor INTERPRETATION Today I10 - Essential (primary) hypertension Medications: Changed From lisinopril 10 mg PO DAILY 90 days 90 tabs 1RF I10 - Essential (primary) hypertension To lisinopril 20 mg PO DAILY 90 days 90 tabs 1RF I10 - Essential (primary) hypertension Coding Level of Care Code Est Pt Level 4 (92409) Diagnoses Essential hypertension I10 CPT Codes - CPT: 80809 24 Hour Blood Pressure Monitor Reading ([id number])
--- OUTSIDE RECORDS SUMMARY | 2024-05-08 10:31 | XMS_ITS | Clinical Summary ---
Author Organization [facility] it Address [address] [place] [address] Care Team Providers Care Dragline Engineer Name Role Phone Unavailable Primary Care Provider [...]
--- OUTSIDE RECORDS SUMMARY | 2024-05-08 10:31 | XMS_ITS | Continuity of Care Document ---
Author Organization [facility] [address] [place] [address] Phone [phone] Care Team Providers Care Research And Development Chemist Name Role Phone Sharmin Antunez MD Care Team Information Receiv er [phone] Problems Active Problems Provider Date Hirsutism Nicola Mike M.D. Onset: 0 03/08/2023 Vitamin D deficiency Nicola Mike M.D. Ons et: 03/08/2023 Social History Type Date Description Comments Sex Unknown Allergies and adverse reactions Active Allergies Criticality Reaction Severity Comments Date Aspirin Unable to assess criticality Rash,Swelling 03/08/2023 Seafood Unable to assess criticality 03/08/2023 Procedures Date Code Description Status 03/08/2023 NSHOWOFF No Show Office Visit Complet ed Medical Devices Description No Information Available Encounters Description No Information Available Assessments Description No Information Available Plan of Treatment No Information Available Functional Status Description No Information Available Mental Status Description No Information Available Referrals Description No Information Available
== END 2024-05-08 11:02 | disposition home or self-care (01) ==
PROVIDERS: PCP Internal Medicine; Visit Provider Internal Medicine Hypertension Specialist
DX: I10 Essential (primary) hypertension (principal)
CPT/HCPCS: 93790; 99214

== ENCOUNTER → 2024-05-08 09:24 | Outpatient (BNVA) | payer BC, SELFPAY | PROVIDERS: PCP Internal Medicine; Visit Provider Internal Medicine Hypertension Specialist | DX: I10 Essential (primary) hypertension (principal); Z79.899 Other long term (current) drug therapy | CPT/HCPCS: 93786; 93788 ==

== ENCOUNTER → 2024-08-22 10:00 | Outpatient (REF) | payer BC, SELFPAY ==
--- OUTSIDE RECORDS SUMMARY | 2024-08-22 11:10 | XMS_ITS | Continuity of Care Document ---
Author Organization [facility] [address] [place] [address] Phone [phone] Care Team Providers Care Analytical Sciences Director Name Role Phone Sharmin Antunez MD Care Team Information Receiv er [phone] Problems Active Problems Provider Date Hirsutism Nicola Mike M.D. Onset: 0 03/08/2023 Vitamin D deficiency Nicola Mike M.D. Ons et: 03/08/2023 Social History Type Date Description Comments Sex Female Sex Unknown Allergies and adverse reactions Active [...]
== END ==
LOC: HO.SL 10:00
PROVIDERS: PCP Internal Medicine; Visit Provider Physician Assistant Medical
DX: G47.19 Other hypersomnia (principal)
CPT/HCPCS: 95806

== ENCOUNTER → 2024-08-22 10:13 | Outpatient (BNV) | payer BC, SELFPAY | PROVIDERS: PCP Internal Medicine; Visit Provider Psychiatry & Neurology Neurology | DX: G47.19 Other hypersomnia (principal) | CPT/HCPCS: 95806 ==

== ENCOUNTER 2024-10-15 10:11 | Outpatient (REF) | payer BC, SELFPAY | END 2024-10-15 10:12 | disposition home or self-care (01) | LOC: HO.LAB 10:11 | PROVIDERS: PCP Internal Medicine; Visit Provider Internal Medicine | DX: Z00.00 Encounter for general adult medical examination without abnormal findings (principal); N39.0 Urinary tract infection, site not specified; R20.2 Paresthesia of skin; Z13.31 Encounter for screening for depression; Z13.39 Encounter for screening examination for other mental health and behavioral disorders | CPT/HCPCS: 81003; 87086; 96127 ==

== ENCOUNTER 2024-10-15 10:11 | Outpatient (AMB) | payer BC, SELFPAY ==
[2024-10-15 10:14] VITALS: BP 104/68; PULSE 86; RESP 18; O2SAT 94; BMI 32.8
--- NOTE | 2024-10-15 10:14 | MHC.PC.OV ---
Vital Signs 10/15/24 10:14 Height 5 ft 3 in Weight 185 lb 4 oz BMI 32.8 BP 104/68 Blood Pressure Location Lt brachial Position Sitting Respiration 18 Pulse 86 Pulse Source Pulse Oximeter Temp Source Temporal Artery Scan Pulse Oximetry (%) 94 Oxygen Delivery Method Room Air Intake Visit Reasons: annual Metal Bonder Required: No Accompanied by: Self / Same As Patient Allergies aspirin Allergy (Intermediate, Verified 10/15/24 10:26) rash and swelling seafood Allergy (Intermediate, Verified 10/15/24 10:26) swelling Medication List - Last Reconciled 10/15/24 by Sharmin Gray MD cholecalciferol (vitamin D3) 25 mcg PO DAILY lisinopril 20 mg PO DAILY 90 days Tobacco use date assessed: 10/15/24 Dental Screening Dental Screen Date: 10/15/24 Did you have a dental visit in the last 12 months?: Yes Did you have a dental problem in the last 6 months where you did not have access to dental care?: No Was dental information given to patient?: Patient has dentist HPI HPI Comments History of Present Illness Details The patient is a 39-year-old female presenting with an annual physical examination. She has a history of hypertension, for which she is currently taking lisinopril 20 mg, but she reports that this dosage causes her blood pressure to drop too low. She mentions that the medication was prescribed by a insulation inspector. The patient has allergies to aspirin, which causes a rash, and to seafood, which causes swelling. She reports a urinary tract infection and plans to have a urine test conducted. Also complains of left hand paresthesia involving the 4th and 5th finger that started few weeks ago. The patient has been scheduled for a sleep apnea study, with an appointment set for November 08. She also mentions a previous dilation and curettage procedure in 2016. Family history includes her father, who at 56 from diabetes, cancer, and hypertension, while her mother has a history of heart problems, possibly a prolapse. The patient denies smoking and alcohol use and reports regular exercise, attending the gym four to five days a week. - Annual physical examination completed - Scheduled sleep apnea study on November 08 - Urine test planned for urinary tract infection - declines Tdap vaccine today. -mammogram done in March was normal and Pap smear done February of last year and was normal. [facility] Medical History (Updated 10/15/24 @ 10:52 by Sharmin Gray MD) Uncontrolled hypertension Elevated BP without diagnosis of hypertension Skin lesion Hypovitaminosis D Headache Hirsutism Obese Surgical History History of D&C Family History Father Stroke Cancer Diabetes Hypertension Mother No problems noted. Maternal Grandmother Cancer Maternal Grandfather Cancer Social History Housing: Apartment Alcohol intake: never Patient Tobacco Use Status: Never used Tobacco e-Cigarette/Vaping Use: Never Used Second Hand Smoke Exposure: No service: No Current occupational status: employed Current occupational exposures/hazards: No Cognitive needs: No Hearing needs: No Vision needs: Yes (glasses) Questionnaire PHQ-9 Over the last 2 weeks, how often have you been bothered by any of the following problems? 1. Little interest or pleasure in doing things: not at all 2. Feeling down, depressed, or hopeless: not at all 3. Trouble falling or staying asleep, or sleeping too much: several days 4. Feeling tired or having little energy: several days 5. Poor appetite or overeating: not at all 6. Feeling bad about yourself - or that you are a failure or have let yourself or your family down: not at all 7. Trouble concentrating on things, such as reading the newspaper or watching television: not at all 8. Moving or speaking so slowly that other people could have noticed. Or the opposite - being so fidgety or restless that you have been moving around a lot more than usual: not at all 9. Thoughts that you would be better off or of hurting yourself in some way: not at all Total score: 2 Depression Screening Interpretation: Negative Depression Screening Done: Yes 99774 - PHQ-9 Billing: Yes Source: Developed by Drs. Cutae Aguiar, Seda Brink, Marc Garces and colleagues, with an educational chetan from [employer]. Thrive Questionnaire Date Thrive assessed: 10/15/24 I am a: Patient What is your living situation today?: I have a steady place to live Within the past 12 months, did the food you bought not last and you didn't have the money to get more?: Never true Within the past 12 months, did you worry whether your food would run out before you got money to buy more?: Sometimes True Do you have trouble paying for medicines?: No Do you have trouble getting transportation to medical appointments?: No Do you have trouble paying your heating and electricity bill?: No Do you have trouble taking care of your child, family member or friend?: No Do you have trouble with day-to-day activities such as bathing, preparing meals, shopping, managing finances, etc.?: No Are you currently unemployed and looking for a job?: No Are you interested in more education?: No Please select the resources that you would like help with: None Currently or been in a relationship where the following occur: No concerns reported THRIVE Score: 1 AUDIT C Alcohol Use Questionnaire (AUDIT-C) 1. How often do you have a drink containing alcohol?: Never 3. How often do you have six or more drinks on one occasion?: Never Total Score: 0 Score Reviewed/Action Taken: No MARINO-7 AMB Questionnaire MARINO-7 Date MARINO - 7 assessed: 10/15/24 Feeling nervous, anxious, or on edge: 0 = Not at all Not being able to stop or control worryin = Not at all Worrying too much about different things: 0 = Not at all Trouble relaxin = Not at all Being so restless that it is hard to sit still: 0 = Not at all Becoming easily annoyed or irritable: 0 = Not at all Feeling afraid as if something awful might happen: 0 = Not at all Total MARINO-7 score (0-4 normal; 5-9 mild; 10-14 moderate; 15-21 severe): 0 Source: Developed by Drs. Cuate Aguiar, Seda Brink, Marc Garces and colleagues, with an educational chetan from [employer]. MARINO-7 Assessment Billing MARINO-7 Assessment Tool: MARINO-7 Assessment 03481 Review of Systems Const All systems reviewed & are unremarkable except as noted in HPI and below Card Denies chest pain at rest, Denies chest pain with activity, Denies edema, Denies irregular heart rhythm, Denies claudication, Denies dyspnea, Denies dyspnea on exertion, Denies orthopnea, Denies paroxysmal nocturnal dyspnea and Denies slow heart rate Resp Denies cough, Denies dyspnea and Denies dyspnea on exertion GI Denies abdominal pain, Denies change in bowel habits, Denies excessive flatus, Denies nausea and Denies vomiting Physical exam (Primary Care) Vital Signs: Last Vital Signs Pulse 86 10/15/24 10:14 Resp 18 10/15/24 10:14 BP 104/68 10/15/24 10:14 Pulse Ox 94 10/15/24 10:14 Oxygen Delivery Method Room Air 10/15/24 10:14 BMI result Body Mass Index 32.8 BMI Assessment/Plan discussion: High BMI High, discussed plan: lifestyle, weight reduction, dietary and physical activity Tobacco/Smoking Status: Tobacco use Status Tobacco use date assessed 10/15/24 10/15/24 10:20 Patient Tobacco Use Status Never used Tobacco 10/15/24 10:20 e-Cigarette/Vaping Use Never Used 10/15/24 10:20 PHQ-9: PHQ-9 Score PHQ-9: Total score 2 10/15/24 10:54 Depression Screening Interpretation: Negative Thrive Assessment: Date of Thrive Assessment Date Thrive assessed 10/15/24 10/15/24 10:20 Currently or been in a relationship where the following occur: No concerns reported [facility] Head: Yes normal to inspection, Yes normocephalic and Yes atraumatic Ears: external ears normal Eyes General: appearance normal, both eyes and all related structures Eyelids: Yes eyelids normal Conjunctivae: conjunctivae normal Neck Neck: Yes normal visual inspection and Yes supple Resp Effort & Inspection: normal respiratory effort Auscultation: clear to auscultation bilaterally Cardio Jugular venous distension: no JVD Rate: regular rate Rhythm: regular rhythm Heart sounds: S1 normal heart sound present and S2 normal heart sound present GI Inspection: Yes normal to inspection Palpation (GI): Soft to palpation and nontender Auscultation: normal bowel sounds Skin General skin exam: no rashes or lesions noted Neuro General: no focal motor deficits Extrem General: Yes full ROM Psych Appearance: grossly normal Results AMB Urinalysis, Automated UA Leukoctes 2 Gautam/uL Last Edit by Aida Marin MA on 10/15/24 10:52 UA Nitrite Negative Last Edit by Aida Marin MA on 10/15/24 10:52 UA Urobilinogen 0 mg/dL Last Edit by Aida Marin MA on 10/15/24 10:52 UA Protein 1 mg/dL Last Edit by Aida Marin MA on 10/15/24 10:52 UA pH 6.0 Last Edit by Aida Marin MA on 10/15/24 10:52 UA Blood 1 Vinny/uL Last Edit by Aida Marin MA on 10/15/24 10:52 UA Specific [place] 1.025 Last Edit by Aida Marin MA on 10/15/24 10:52 UA Ketone Negative Last Edit by Aida Marin MA on 10/15/24 10:52 UA Bilirubin 1 mg/dL Last Edit by Aida Marin MA on 10/15/24 10:52 UA Glucose 0 mg/dL Last Edit by Aida Marin MA on 10/15/24 10:52 Results Reviewed Results Reviewed: Laboratory Last Values Urine pH (Auto) 6.0 10/15/24 10:47 Specific [place] (Auto) 1.025 10/15/24 10:47 Urine Protein (Auto) 1 mg/dL 10/15/24 10:47 Glucose (UA)(Auto) 0 mg/dL 10/15/24 10:47 Urine Ketones (Auto) Negative 10/15/24 10:47 Urine Blood (Auto) 1 Vinny/uL 10/15/24 10:47 Urine Nitrite (Auto) Negative 10/15/24 10:47 Urine Bilirubin (Auto) 1 mg/dL 10/15/24 10:47 Urine Urobilinogen (Auto) 0 mg/dL 10/15/24 10:47 Leukocyte Esterase (Auto) 2 Gautam/uL 10/15/24 10:47 Coding Level of Care Code Est Pt Level 3 (02280) Est Pt Prev Care 40-64y(39044) Diagnoses Physical exam Z00.00 UTI (urinary tract infection) N39.0 Left hand paresthesia R20.2 Additional Codes MARINO-7 Assessment Billing - MARINO-7 Assessment Tool: MARINO-7 Assessment 28916 ([id number]) PHQ-9 - 52827 - PHQ-9 Billing: Yes ([id number]) Time Spent (min) 34 Assessment & Plan Assessment & Plan (1) Physical exam: Code(s): Z00.00 - Encounter for general adult medical examination without abnormal findings Category: Medical (2) UTI (urinary tract infection): Code(s): N39.0 - Urinary tract infection, site not specified Category: Medical (3) Left hand paresthesia: Code(s): R20.2 - Paresthesia of skin Category: Medical Plan The patient will continue with her current medication regimen for hypertension, but consideration should be given to adjusting the dosage of lisinopril due to reports of hypotension. A urine test will be conducted to confirm and manage the urinary tract infection. The patient is scheduled for a sleep apnea study on November 08 to evaluate her condition further. Allergy management includes avoidance of aspirin and seafood due to previous reactions. Preventative care measures include maintaining regular physical activity and attending scheduled health screenings. Patient was informed and verbally consented to the use of an ambient scribe for clinic note documentation during this visit. Orders: Orders Lipid Panel Today E78.5 - Hyperlipidemia, unspecified NE electromyogram (EMG) Today R20.2 - Paresthesia of skin AMB Urinalysis Automated Today Z13.9 - Encounter for screening, unspecified Comprehensive [place]. Panel Fast Today I10 - Essential (primary) hypertension NE nerve conduction velocity Today R20.2 - Paresthesia of skin Urine Culture Today N39.0 - Urinary tract infection, site not specified Medications: New lisinopril 10 mg PO DAILY 90 tabs 1RF 90 days nitrofurantoin macrocrystal must administer with a meal/food 100 mg PO BID 10 caps 0RF 5 days Discontinued lisinopril Discontinued Reason: Patient Completed Course 20 mg PO DAILY 90 days 90 tabs 1RF I10 - Essential (primary) hypertension
--- OUTSIDE RECORDS SUMMARY | 2024-10-15 11:12 | XMS_ITS | Clinical Summary ---
Author Organization [facility] Address [address] [place] [address] Care Team Providers Care Bean Dumper Name Role Phone Unavailable Primary Care Provider [...] Cervical Cancer Screening: P ap Smear 01/05/2005 HIV Screening 02/06/2022 Hepatitis C Screening 02/06/2022 Social Influencers of Health Screening 02/06/2022 COVID-19 Vaccine ( - 2023-2 5 season) 2023 Depression Screening 03/06/2024 Influenza Vaccine (#1) 2024 HIB Vaccines Aged Out No longer eligi [...] age to complete this topic Meningococcal B Vaccine Aged Out No l onger eligible based on patient's age to complete this topic Pneumococcal Vaccine: Pediat rics (0 to 5 Years) and At-Risk Patients (6 to 49 Years) Aged Out No longer eligible b ased on patient's age to complete this topic RSV Immunization Patients Un carie 20 months Aged Out No longer eligible b ased on patient's age to complete this topic Varicella Vaccines Aged Out No longer eligible based on patient's age to complete this topic
--- OUTSIDE RECORDS SUMMARY | 2024-10-15 11:12 | XMS_ITS | Clinical Summary ---
Author Organization [facility] Address [address] [place] [phone] Phone Care Team Providers Care Bench Lay Out Technician Name Role Phone Pcp, Unknown Primary Care Provider Unavailabl e Social History Tobacco Use Types Packs/Day Years Used Date Smoking Tobacco: Never Assessed Education Answer Date Recorded Are you interested in more education? Not on andres e 09/26/2024 Are you concerned about learning? Not on file 09/26/2024 No 09/26/2024 No 09/26/2024 Digital Access Answer Date Recorded No 09/26/2024 No 09/26/2024 Reliable internet access at home? Not on file 09/26/2024 Device with a working camera? Not on file Comments Unknown Sex and Gender Information Value Date Recorded Sex Assigned at Not on file Legal Sex Female 1:11 PM EDT Gender Identity Not on file Sexual Orientation Not on file Plan of Treatment Upcoming Encounters Date Type Department Care Team (Late st Contact Info) Description 02/14/2025 3:15 PM EST Office Visit [facility] in [place] [id number] Shoaib Nichols MD [address] [place] [address], [place] [phone] [email or web address] 02/14/2025 3:45 PM EST Procedure visit [facility] in [address] [address] Health Maintenance Due Date Last Done Comments Adult Td,Tdap Booster 1984 DEPRESSION SCREENING 1996 SMOKING Hx and SMOKELESS TOB ACCO SCREENING 01/05/1997 HEPATITIS C SCREENING 01/05/2002 HIV ONE-TIME SCREENING (18-6 5 YEARS) 01/05/2002 PAP SMEAR 01/05/2005 COVID-19 VACCINE (2023-2 5 season) 2023 MAMMOGRAM 2024 HEPATITIS A VACCINES Aged Out No long er eligible based on patient's age to complete this topic HIB VACCINES Aged Out No longer eligi ble based on patient's age to complete this topic MENINGOCOCCAL VACCINES (ACWY) Aged Out No longer eligible based on patient's age to complete this topic MENINGOCOCCAL VACCINES (B) Aged Out N o longer eligible based on patient's age to complete this topic PNEUMOCOCCAL VACCINES (0-49 years) Aged Out No longer eligible based on patient's age to complete this topic Medical Devices Not on file Care Teams Bench Lay Out Technician Relationship Specialty Start Date End Date Pcp, Unknown PCP - General 09/26/24 Additional Source Comments The information contained in this document represents components of the legal health record. It is not the complete legal health record.[facility]
--- OUTSIDE RECORDS SUMMARY | 2024-10-15 11:12 | XMS_ITS | Continuity of Care Document ---
Author Organization [facility] [address] [place] [address] Phone [phone] Care Team Providers Care Yard Worker Name Role Phone Sharmin Antunez MD Care Team Information Receiv er [phone] Problems Active Problems Provider Date Hirsutism Nicola [...]
== END 2024-10-15 10:47 | disposition home or self-care (01) ==
LOC: HO.HMCH 10:12
PROVIDERS: PCP Internal Medicine; Visit Provider Internal Medicine
DX: Z00.00 Encounter for general adult medical examination without abnormal findings (principal); N39.0 Urinary tract infection, site not specified; R20.2 Paresthesia of skin

== ENCOUNTER → 2024-12-03 20:30 | Outpatient (REF) | payer BC, SELFPAY ==
--- OUTSIDE RECORDS SUMMARY | 2024-12-03 21:37 | XMS_ITS | Clinical Summary ---
Author Organization [facility] Address [address] [place] [address] Phone Care Team Providers Care Waterproof Bag Sewer Name Role Phone Pcp, Unknown Primary Care [...] PM EST Office Visit [facility] in [place] [phone] Shoaib Nichols MD [address] [place] [address], [place] [phone] [email or web address] 02/14/2025 3:45 PM EST Procedure visit [facility] in [address] [address] Health Maintenance Due Date Last Done Comments Adult Td,Tdap Booster 1984 DEPRESSION SCREENING 1996 SMOKING Hx and SMOKELESS TOB ACCO SCREENING 01/05/1997 HEPATITIS C SCREENING 01/05/2002 HIV ONE-TIME SCREENING (18-6 5 YEARS) 01/05/2002 PAP SMEAR 01/05/2005 MAMMOGRAM 2024 INFLUENZA VACCINE (#1) 2024 COVID-19 VACCINE (2023-2 5 season) 2024 HEPATITIS A VACCINES Aged Out No [...] Medical Devices Not on file Care Teams Waterproof Bag Sewer Relationship Specialty Start Date End Date Pcp, Unknown PCP - General 09/26/24 Additional Source Comments The information contained in this document represents components of the legal health record. It is not the complete legal health record.[facility]
--- OUTSIDE RECORDS SUMMARY | 2024-12-03 21:37 | XMS_ITS | Continuity of Care Document ---
Author Organization [facility] [address] [place] [address] Phone [phone] Care Team Providers Care Dental Assistant Teacher Name Role Phone Sharmin Antunez MD Care Team Information Receiv er [phone] Problems Active Problems Provider Date Hirsutism Nicola [...]
--- OUTSIDE RECORDS SUMMARY | 2024-12-03 21:37 | XMS_ITS | Clinical Summary ---
Author Organization [facility] Address [address] [place] [address] Care Team Providers Care Health It Specialist Name Role Phone Unavailable Primary Care Provider [...] 02/06/2022 Social Influencers of Health Screening 02/06/2022 Depression Screening 03/06/2024 COVID-19 Vaccine ( - 2023-2 5 season) 2024 Influenza Vaccine (#1) 2024 HIB Vaccines Aged [...]
== END ==
LOC: HO.SL 20:30
PROVIDERS: PCP Internal Medicine; Visit Provider Physician Assistant Medical
DX: G47.19 Other hypersomnia (principal); G47.33 Obstructive sleep apnea (adult) (pediatric)
CPT/HCPCS: 95810

== ENCOUNTER → 2024-12-03 21:29 | Outpatient (BNV) | payer BC, SELFPAY | PROVIDERS: PCP Internal Medicine; Visit Provider Psychiatry & Neurology Neurology | DX: G47.33 Obstructive sleep apnea (adult) (pediatric) (principal) | CPT/HCPCS: 95810 ==